=== PATIENT | female | born 1950 | race Caucasian/White ===

== ENCOUNTER → 2017-12-17 11:16 | Outpatient (CLI) | payer MEDICARE, OTHER, SELFPAY ==
[2017-12-17 09:47] VITALS: BP 131/85; BMI 32.9
[2017-12-17 11:46] LABS: Allen Test POS; Base Excess 3 mmol/L (-2 to +2); Bicarbonate 27.3 mmol/L (22-26); Blood Gas Specimen Type ART; O2 Delivery Device Nasal Can; PO2 70 mmHG (75-100); SITE R Radial; SO2 94 % (95-99); Time Given 1125; Total Carbon Dioxide 29 mmol/L; pH 7.42 (7.35-7.45)
== END ==
PROVIDERS: Family Provider Family Medicine; PCP Family Medicine; Visit Provider Nurse Practitioner Acute Care
DX: R06.09 Other forms of dyspnea (principal)
CPT/HCPCS: 36600; 82803

== ENCOUNTER → 2018-01-01 12:13 | Outpatient (CLI) | payer MEDICARE, OTHER, SELFPAY ==
[2017-12-17 09:47] VITALS: BP 131/85; BMI 32.9
[2018-01-01 14:04] VITALS: PULSE 100; PULSE 102; PULSE 104; PULSE 118; PULSE 82; O2SAT 77; O2SAT 78; O2SAT 84; O2SAT 87; O2SAT 89; O2SAT 92
--- NOTE | 2018-01-01 14:12 | CPS ---
PT ARRIVED ON 4L PULSE DOSE O2. PLACED HER ON ROOM AIR. SATS WERE 77%. PLACED THE PT BACK ON 4L PULSE DOSE SATS INCREASED TO 93%. AT ONE MINUTE SATS DECREASED TO 84% INCREASED TO 5L PULSE DOSE. AT 2 MINUTES SATS WERE 78% PLACED THE PATIENT ON 4L CONTINUOS OXYGEN SATS INCREASE TO 90%. AT 3 MINUTES HAD TO INCREASE PATIENT TO 6L DUE TO SATS 87%. PT WAS INSTRUCTED TO USE CONTINOUS OXYGEN AT HOME WITH EXCERTION. I SPOKE WITH HARRY AND THIS IS WHAT SHE INSTRUCTED PATIENT TO DO.
--- NOTE | 2018-01-01 16:24 | WT_ITS ---
PSN 6 Minute Walk Test - 6 Minute Walk Test 6 Minute Walk Test: 6 Minute Walk Test PSN:6-Minute Walk Test Start: 01/01/18 14: 04 Freq: Status: Active Protocol: [id number] Document 01/01/18 14:04 EW (Rec: 01/01/18 14:19 EW [id number]) 6 Minute Walk Test Date Performed 01/01/18 Time Performed 12:30 Height 5 ft 9 in Weight: 73.936 kg Weight in Pounds 163.[address]: Harry Flores Assistive device used: None Pre-test Oxygen Delivery Method Room Air Pulse Ox (%) 77 Pulse Rate (60-100 beats/min) 104 H Dyspnea Janna Scale (0-10) 2 Exertion Janna Scale (6-20) 8 1st minute Oxygen Flow Rate (L/min) 5 Oxygen Delivery Method Nasal Cannula Pulse Ox (%) 84 Pulse Rate (60-100 beats/min) 102 H 2nd minute Oxygen Flow Rate (L/min) 4 Oxygen Delivery Method Nasal Cannula Pulse Ox (%) 78 Pulse Rate (60-100 beats/min) 118 H 3rd minute Oxygen Flow Rate (L/min) 6 Oxygen Delivery Method Nasal Cannula Pulse Ox (%) 87 Pulse Rate (60-100 beats/min) 104 H 4th minute Oxygen Flow Rate (L/min) 6 Oxygen Delivery Method Nasal Cannula Pulse Ox (%) 89 Pulse Rate (60-100 beats/min) 102 H 5th minute Oxygen Flow Rate (L/min) 6 Oxygen Delivery Method Nasal Cannula Pulse Ox (%) 92 Pulse Rate (60-100 beats/min) 100 6th minute Oxygen Flow Rate (L/min) 6 Oxygen Delivery Method Nasal Cannula Pulse Ox (%) 89 Pulse Rate (60-100 beats/min) 104 H Post-test Oxygen Delivery Method Nasal Cannula Pulse Ox (%) 92 Pulse Rate (60-100 beats/min) 82 Dyspnea Janna Scale (0-10) 3 Exertion Janna Scale (6-20) 12 Full Laps Walked 10 Partial Lap, Number of Tiles Walked 0 Total Distance Walked (ft) 590 01/01/18 14:12 Cardiopulmonary Services by Miladis Quiles PT ARRIVED ON 4L PULSE DOSE O2. PLACED HER ON ROOM AIR. SATS WERE 77%. PLACED THE PT BACK ON 4L PULSE DOSE SATS INCREASED TO 93%. AT ONE MINUTE SATS DECREASED TO 84% INCREASED TO 5L PULSE DOSE. AT 2 MINUTES SATS WERE 78% PLACED THE PATIENT ON 4L CONTINUOS OXYGEN SATS INCREASE TO 90%. AT 3 MINUTES HAD TO INCREASE PATIENT TO 6L DUE TO SATS 87%. PT WAS INSTRUCTED TO USE CONTINOUS OXYGEN AT HOME WITH EXCERTION. I SPOKE WITH HARRY AND THIS IS WHAT SHE INSTRUCTED PATIENT TO DO. Initialized on 01/01/18 14:12 - END OF NOTE - Interpretation Interpretation: Patient was noted to be 77% on room air, but improved to 93% at 4 L pulse dose. Patient was titrated as high as 6 L pulse dose, but continued to have desaturation. Reflexive tachycardia was noted. A total of 590 feet or traveled over the course of 6 minutes. These findings are consistent with a respiratory limitation exercise tolerance - Recommendations Recommendations: Patient requires at least 4 L pulse dose at rest and has marginal saturations with 6 L pulse dose with exertion. Patient may require continuous flow oxygen to maintain safe exercise oximetries.
== END ==
PROVIDERS: Family Provider Internal Medicine; PCP Internal Medicine; Visit Provider Nurse Practitioner Acute Care
DX: R06.09 Other forms of dyspnea (principal)
CPT/HCPCS: 94618

== ENCOUNTER → 2018-01-03 14:05 | Outpatient (CLI) | payer MEDICARE, OTHER, SELFPAY ==
[2017-12-17 09:47] VITALS: BP 131/85; BMI 32.9
--- NOTE | 2018-01-03 14:06 | ECHOD_ITS ---
Version 2 Reason For Study: Dyspnea/SOB Procedure This was a 2D Doppler, Color Flow transthoracic echocardiogram. Exam performed in department. Left Ventricle Normal size and thickness. The estimated ejection fraction is 65 %. Stage 1 diastolic dysfunction. No regional wall motion abnormalities noted. Right Ventricle Normal size and thickness. Normal systolic function. Atria Normal left atrium. Normal right atrium. Normal atrial septum. Mitral Valve The mitral valve is structurally normal. No prolapse or stenosis seen. Trivial mitral valve insufficiency. Tricuspid Valve Normal tricuspid valve. Trivial tricuspid valve insufficiency. Right ventricular systolic pressure estimated to be 18 mmHg. Aortic Valve Normal aortic valve. Trisinus/trileaflet aortic valve. Pulmonic Valve Normal pulmonic valve. Trivial eccentric pulmonic valve insufficiency. Great Vessels Normal aortic root. Normal arch. Normal inferior vena cava. Inferior vena cava collapse with sniff. Pericardium/Pleural No pericardial effusion. MMode/2D Measurements & Calculations LVIDd: 3.6 cm IVSd: 0.92 cm Ao root diam: 2.7 cm LVIDs: 2.1 cm LVPWd: 0.93 cm LA dimension: 3.5 cm RVDd: 3.4 cm FS: 41.8 % LAV(MOD-bp): 19.9 ml LA A4 area: 10.4 cm2 RA A4 area: 10.4 cm2 LAV(MOD-bp) Indexed: 11.8 ml/m2 LAV(MOD-sp2): 21.3 ml LAV(MOD-sp4): 17.7 ml Doppler Measurements & Calculations MV E max shay: 49.7 cm/sec Lat Peak E' Shay: 4.6 cm/sec Med Peak E' Shay: 3.0 cm/sec MV A max shay: 76.1 cm/sec E/E' lat: 10.7 E/E' med: 16.7 MV E/A: 0.65 Ao V2 max: 151.7 cm/sec LV V1 max: 107.0 cm/sec PA V2 max: 72.1 cm/sec Ao max P.2 mmHg LV V1 max P.6 mmHg Ao V2 mean: 109.3 cm/sec Ao mean P.2 mmHg Ao V2 VTI: 26.1 cm TR max shay: 180.4 cm/sec TR max P.0 mmHg Interpretation Summary The estimated ejection fraction is 65 %. Stage 1 diastolic dysfunction. Trivial mitral valve insufficiency. Trivial tricuspid valve insufficiency. Right ventricular systolic pressure estimated to be 18 mmHg. Compared to echo report dated 05/16/2016, no appreciable changes noted. The estimated ejection fraction is 65 %. Ordering Physician: Autumn Flores Referring Physician: Rosalia Harrell Performed By: Luz Marina Mancia RDCS, RVT
== END ==
PROVIDERS: Family Provider Internal Medicine; PCP Internal Medicine; Visit Provider Nurse Practitioner Acute Care
DX: R06.09 Other forms of dyspnea (principal)
CPT/HCPCS: 93306

== ENCOUNTER → 2018-01-07 13:14 | Outpatient (CLI) | payer MEDICARE, OTHER, SELFPAY ==
[2017-12-17 09:47] VITALS: BP 131/85; BMI 32.9
--- NOTE | 2018-01-08 11:18 | PFT ---
INTRODUCTION: The patient is a 67-year-old female currently under the care of Autumn Flores NP that presents for pulmonary function testing secondary to a diagnosis of dyspnea on exertion. Respiratory therapy reports good patient effort. Bronchodilators were used during testing. INTERPRETATION: Forced expiration spirometry demonstrates no evidence of a large airways obstructive ventilatory defect. There was no significant response to aerosolized bronchodilators, based upon strict ATS criteria. Spirograms are of fair quality and plateau normally. Body plethysmography was performed and reveals a decreased TLC to 3.83 L, 69% of predicted, indicative of a moderate restrictive ventilatory defect. The remainder of the lung volumes are symmetrically reduced. Diffusing capacity by single breath CO is severely reduced at 19% of predicted. When compared to previous pulmonary function studies dated May 2017, there has been a 40% decrease in the patient's DLCO. IMPRESSION: These pulmonary function studies demonstrate the presence of a moderate restrictive ventilatory defect with a disproportionate severe reduction in diffusing capacity. There has been significant worsening in DLCO since PFTs were last completed in May 2017. Clinical correlation is recommended.
== END ==
PROVIDERS: Family Provider Internal Medicine; PCP Internal Medicine; Visit Provider Nurse Practitioner Acute Care
DX: R06.09 Other forms of dyspnea (principal)
CPT/HCPCS: 94060; 94726; 94729

== ENCOUNTER → 2018-02-20 07:45 | Outpatient (CLI) | payer MEDICARE, OTHER, SELFPAY ==
[2018-02-20 08:48] LABS: Hematocrit 49.1 % (37-47); Hemoglobin 16.5 g/dl (12.0-15.0); Mean Corp Hgb Conc 33.6 g/gl (32-36); Mean Corpuscular Hgb 31.4 pg (27.0-32.0); Mean Corpuscular Volume 93.3 fL (81-99); Mean Platelet Vol. 10.9 fl (6.2-12.0); Platelet Count 217 K/mm3 (150-450); RBC Distribution Width CV 13.6 % (11.6-14.6); RBC Distribution Width SD 45.1 fl (35.1-43.9); Red Blood Count 5.26 M/mm3 (4.2-5.4); White Blood Count 6.6 K/mm3 (4.4-11.0)
[2018-02-20 08:49] LABS: Scan Indicated on CBC? Y/N NO
[2018-02-20 09:10] LABS: ALB/GLOB Ratio 0.9 RATIO (0.9-2.4); AST(SGOT) 32 U/L (15-37); Alanine Aminotransfer ALT/SGPT 33 U/L (13-56); Albumin, Serum 3.6 g/dL (3.2-5.0); Alkaline Phosphatase 91 U/L (45-117); Anion Gap 9 (5-15); BUN 21 mg/dL (7-18); BUN/Creat Ratio 24.3 RATIO (10-20); Calcium,Total 9.1 mg/dL (8.5-10.1); Chloride 100 mmol/L (98-107); Cholesterol 185 mg/dL (200); Creatinine, Serum 0.86 mg/dL (0.55-1.02); EST Glomerular Filtration Rate 70 mL/min (>60); Est Glom Filt Rate - Afr Amer 84 mL/min (>60); Globulin 4.2 g/dL (2.2-4.2); Glucose 122 mg/dL (74-106); High Density Lipoprotein 55 mg/dL; Potassium 3.7 mmol/L (3.5-5.1); Protein, Total 7.8 g/dL (6.4-8.2); Sodium Level 139 mmol/L (136-145); Triglycerides 101 mg/dL; Very Low Density Lipoprotein 20 mg/dL (5-40)
[2018-02-20 09:20] LABS: BNP,B-Type NATRIURETIC PEPTIDE 191.1 pg/mL (0-100)
== END ==
PROVIDERS: Nurse Practitioner Acute Care; Family Provider Internal Medicine; PCP Internal Medicine; Visit Provider Internal Medicine
DX: E78.5 Hyperlipidemia, unspecified (principal); R06.09 Other forms of dyspnea; R06.00 Dyspnea, unspecified
CPT/HCPCS: 36415; 80053; 80061; 83880; 85027

== ENCOUNTER → 2018-03-11 09:55 | Outpatient (CLI) | payer MEDICARE, OTHER, SELFPAY ==
[2018-03-11 10:51] LABS: Rheumatoid Factor < 10.0 IU/mL (<15)
[2018-03-13 03:07] LABS: Cytoplasmic Ab (C-ANCA) <1:20 titer (Neg:<1:20)
[2018-03-13 12:24] LABS: CCP IgG Antibodies 4 units (0-19); Perinuclear Ab (P-ANCA) <1:20 titer (Neg:<1:20)
== END ==
PROVIDERS: Family Provider Internal Medicine; PCP Internal Medicine; Visit Provider Nurse Practitioner Acute Care
DX: R06.00 Dyspnea, unspecified (principal)
CPT/HCPCS: 36415; 86200; 86256; 86431

== ENCOUNTER → 2018-03-21 15:34 | Outpatient (CLI) | payer MEDICARE, OTHER, SELFPAY ==
--- NOTE | 2018-03-21 15:36 | CT_ITS ---
STUDY: CT CHEST WITHOUT CONTRAST REASON FOR EXAM: Female, 67 years old. DYSPNEA, WORSENING, BRONCHIECTASIS, PREV SMOKER-QUIT SMOKING 20 YRS AGO, HX-HTN RADIATION DOSAGE (If Supplied By Facility): CTDIvol = ( 21.09 ) mGy, DLP = ( 650.35 ) mGycm TECHNIQUE: Transaxial imaging was performed without the administration of intravenous contrast material. Individualized dose optimization techniques were used for this CT. COMPARISON: March 13, 2016 FINDINGS: There is worsened diffuse bronchiectasis. There are worsened honeycombing of the lower lobes. There is no demonstrated pleural abnormality. There is stable borderline cardiomegaly. Again seen are multiple mediastinal and hilar lymph nodes, some enlarged. Some lymph nodes have enlarged. Normal unenhanced pulmonary arteries. There is atherosclerotic calcification of the aortic arch with tortuosity and elongation of the aortic arch and descending thoracic aorta. There are multi-level degenerative changes of the thoracic spine. Again seen is intra and extrahepatic biliary dilatation. CT/Chest without Contrast IMPRESSION: There is interval worsening of chronic lung disease. There is slightly worsened mediastinal and hilar lymphadenopathy. Electronically Signed: Guera Shaw MD at 8:52 EDT , Service support ,
== END ==
PROVIDERS: Family Provider Internal Medicine; PCP Internal Medicine; Visit Provider Nurse Practitioner Acute Care
DX: R06.00 Dyspnea, unspecified (principal)
CPT/HCPCS: 71250

== ENCOUNTER 2018-04-01 15:30 | Outpatient (RCR) | payer MEDICARE, OTHER, SELFPAY ==
--- NOTE | 2018-04-08 07:09 | HP.PTEVAL_ITS ---
Patient's Visit Information ISMA GUTIERREZ is a 67 year old F referred to Physical Therapy by Rosalia Harrell MD with a diagnosis of L shoulder tendonitis. Date of Evaluation: 03/28/18 Physical Therapist: Francisco Gomez - Visit Plan Frequency: 2x /Week Duration: 4 Weeks Plan: Continue range of motion, strength to tolerance. Modalities for pain control. - Subjective Subjective: Pt. is here today for her initial evaluation with diagnosis of L shoulder tendonitis. Pt. reports having pain for approximately 6-8 weeks. Pt. reports no mechanism of injury, but a gradual onset. Pt. reports haivng pain in L shoulder in deltoid, sub acromial space region. She reports increased pain with lifting, reaching, ADLs, driving. Decreased pain: rest, OTC pain meds. Pt. denies N/T in either UE. PMH- idiopathic pulmonary fibrosis, Bronchiectasis, Chronic hypoxemic respiratory failure. Pt. reports she is planning on getting on the list for a lung transplant. She is on constant 6 L of O2 at rest. Pt. reports rapid fatigue with all mobility especially with walking. SHe reports no radiatiing pain, but is isolated into L shoulder. Pt. has not trialed exercises or any modalities to reduce symptoms. Pt. is hopeful to reduce L shoulder pain in order to get back to all ADLs and IADLs without limitations. - Pain Left shoulder Pain Intensity (Out of 10): 4 Pain Intensity Range: 1, 6 - Objective POSTURE: Pt. has FH posture, rounded shoulders, increased thoracic kyphosis, over wt. PALPATION: Pt. has increased pain with palpation to sub acromial space anterior to posterior, infrapinatus pain, and medial boarder of scapular pain. NEUROLOGICAL: Pt. has normal sensation to light and sharp touch. Pt. has 2+ biceps and triceps DTR bilaterally. No signs of upper limb tension. ROM: Pt has full cervical ROM without increase in symptoms. R shoulder- full without issues. AROM- L shoulder- flexion 120deg increase NW, abd 118deg increase NW, functional ER C2 abherrant motion increase NW, functional IR ASIS abherrant motion increase NW. PROM- full with increase NW at end ranges. MMT- R shoulder - 4+/5 throughout no pain. L shoulder- flexion 4/5 increase NW, abd 4/5 increase NW, ER 4/5 increase NW, IR 4+/5 NE. - Special Tests L Shoulder Drop Sign - IS Test: Negative L Shoulder Empty Can - SS: Positive L Shoulder Belly Press - SupScap: Negative L Shoulder Neer - Impingement: Positive L Shoulder Patel Warner - Impingement: Positive L Shoulder Biceps Load Test - Labrum: Negative L Shoulder Speeds Test - Labrum/Biceps: Positive - Goals Goal 1:: Pt. to be I with HEP. Goal Time Frame: 4-6 Weeks Goal 2:: Pt. to have full PROM of L shoulder without increase in symptoms. Goal Time Frame: 4-6 Weeks Goal 3:: Pt. to have full AROM, symmetrical to R side without symptoms. Goal Time Frame: 4-6 Weeks Goal 4:: Pt. to have increased LUE strength by 1/2 grade of all effected musculature allowing for increased stability with all ADLs and IADLs. Goal Time Frame: 4-6 Weeks Goal 5:: Pt. to sleep without increase in L shoulder pain allowing for increased quality of life. Goal Time Frame: 4-6 Weeks Goal 6:: Pt. complete all ADLs and IADLs without increas in L shoulder symptoms. Goal Time Frame: 4-6 Weeks - Rehabilitation Potential Physical Therapy Diagnosis: Pt. has signs and symptoms consistent with L shoulder tendonitis/impingement syndrome. Pt. had flexed posture, rounded shoulders and increased pain at she elevates her arm over head heights. She has some slight weakness, but no other signs of tears. Pt. would benefit from PT to increase ROM and strength along with improved posture to reduce stress at subacromial space with all ADLs. Rehabilitation Potential: Good - Anticipated Interventions Patient/Client Instruction: Educate patient on: Condition, Plan of Care, Risk Factors, Benefits of Fitness Program For the Purpose of:: To foster healthy habits, To improve decision making, To facilitate caregiver knowledge, To improve self management, To prevent re-injury , To improve ability to perform tasks related to life management, To improve tolerance to ADL's Therapeutic Exercise to Include: Strength training, Power training, Endurance training, Postural training, Flexibilty training, Passive ROM, Active ROM, Scapular Strength/Stabilization For the Purpose of:: To decrease pain, To decrease swelling/inflammation, To increase ROM, To improve ability to perform ADL's, To improve performance and independence with ADL's, To improve health of tissue, To decrease soft tissue restriction, To increase flexibility/ROM Manual Therapy Techniques to Include: Trigger point massage, Mobilization, Passive ROM, Functional dry needling, Soft tissue mobilization For the Purpose of:: To decrease pain, To decrease swelling/inflammation, To increase ROM, To improve nutrient delivery to tissue, To improve muscle performance and motor function, To improve ability to perform ADL's, To increase tolerance to activity/condition/position, To improve health of tissue, To increase flexibility/ROM IF ES: Yes Cryotherapy (ice pack, ice massage): Yes Ultrasound (thermal/non thermal): Yes For the Purpose of:: To decrease pain, To decrease swelling/inflammation, To increase ROM, To improve nutrient delivery to tissue, To increase oxygenation perfusion, To improve muscle performance and motor function Thank you for the opportunity to evaluate your patient. For Medicare and Medicare HMO plans, please review the plan of care and approve it. It will need to be FAXED BACK to us at [phone] for Medicare purposes. Please let me know if there are questions or concerns regarding this plan of care. Physician Signature: Date:
--- NOTE | 2018-09-05 08:39 | HP.PTDCNRP_ITS ---
HP - Discharge Summary (1) - Patient Information ISMA GUTIERREZ was seen in my office for initial evaluation on 03/28/18. The following Plan of Care was established for this patient: Initial Frequency: 2x /Week Initial Duration: 4 Weeks - Anticipated Interventions Patient/Client Instruction: Educate patient on: Condition, Plan of Care, Risk Factors, Benefits of Fitness Program For the Purpose of:: To foster healthy habits, To improve decision making, To facilitate caregiver knowledge, To improve self management, To prevent re- injury, To improve ability to perform tasks related to life management, To improve tolerance to ADL's Therapeutic Exercise to Include: Strength training, Power training, Endurance training, Postural training, Flexibilty training, Passive ROM, Active ROM, Scapu lar Strength/Stabilization For the Purpose of:: To decrease pain, To decrease swelling/inflammation, To increase ROM, To improve ability to perform ADL's, To improve performance and independence with ADL's, To improve health of tissue, To decrease soft tissue restriction, To increase flexibility/ROM Manual Therapy Techniques to Include: Trigger point massage, Mobilization, Passive ROM, Functional dry needling, Soft tissue mobilization For the Purpose of:: To decrease pain, To decrease swelling/inflammation, To increase ROM, To improve nutrient delivery to tissue, To improve muscle performance and motor function, To improve ability to perform ADL's, To increase tolerance to activity/condition/position, To improve health of tissue, To increase flexibility/ROM IF ES: Yes Cryotherapy (ice pack, ice massage): Yes Ultrasound (thermal/non thermal): Yes For the Purpose of:: To decrease pain, To decrease swelling/inflammation, To increase ROM, To improve nutrient delivery to tissue, To increase oxygenation perfusion, To improve muscle performance and motor function This patient was last seen in our office 04/01/18. Pertinent comments regarding their Physical therapy will appear below: Pt. was seen for PT for her shoulder pain. Pt. has having greater difficulty with her breathing and decided to put PT on hold. Pt. has not been back to PT since. Pt. will be DC from PT at this point in time. At this point I will be discontinuing this patient from physical therapy. I would be happy to see this patient again in the future if found appropriate by the physician. Thank you! Francisco Gomez
== END 2018-04-01 19:00 | disposition home or self-care (01) ==
LOC: PT 15:30
PROVIDERS: Family Provider Internal Medicine; PCP Internal Medicine; Visit Provider Internal Medicine
DX: M77.9 Enthesopathy, unspecified (principal)
CPT/HCPCS: 97014; 97140; 97162; G0283; G8978; G8979

== ENCOUNTER 2018-05-16 06:37 | Inpatient (IN) | payer MEDICARE, OTHER, SELFPAY ==
[2018-05-16] VITALS (28 sets, daily range): BP systolic 79–118; BP diastolic 33–77; PULSE 80–141; RESP 16–29; TEMP 36.3–40.1; O2SAT 80–96; BMI 30.8; BMI 30.9
--- NOTE | 2018-05-16 06:58 | CPS ---
Placed patient on 10L HFNC. Pt states her normal spO2 is 88%
--- NOTE | 2018-05-16 07:00 | ED.RN ---
PT ARRIVES C/O SOB. NORMALLY ON 6-7L AT HOME, BUT ARRIVED W/NO O2. MILD RESPIRATORY DISTRESS NOTED. ALSO C/O DIARRHEA FOR 2-3 DAYS.
--- NOTE | 2018-05-16 07:04 | RAD_ITS ---
STUDY: X-RAY CHEST REASON FOR EXAM: Female, 67 years old. TECHNIQUE: 1 view COMPARISON: None. FINDINGS: There is mild cardiomegaly with abutment of increased interstitial markings in both lung bases. There is no failure and there are no pleural effusions Normal visualized thoracic spine. Normal visualized ribs, clavicles, and shoulders. There is no demonstrated abnormality of the visualized soft tissue structures of the upper abdomen. RAD/Chest 1 View (Portable) IMPRESSION: Moderate cardiomegaly with increased interstitial markings in both lung bases. No pleural effusions Electronically Signed: Kj Booth, at 7:42 EDT Tel , Service support ,
--- NOTE | 2018-05-16 07:04 | EKG12_ITS ---
Test Reason : SOB Blood Pressure : / mmHG Vent. Rate : 129 BPM Atrial Rate : 129 BPM P-R Int : 128 ms QRS Dur : 084 ms QT Int : 288 ms P-R-T Axes : 045 123 005 degrees QTc Int : 421 ms Sinus tachycardia Biatrial enlargement ST & T wave abnormality, consider inferior ischemia Abnormal ECG Confirmed by CARLINE CARABALLO, TORSTEN ([id number]), supervising editor trailer BRIONNA OWENS ([id number]) on 05/19/2018 3:00:54 PM Referred By: MINDA Confirmed By:TORSTEN CROWLEY MD
[2018-05-16] MEDS: Acetaminophen 500 MG Tablet 1000 MG PO (07:13)
[2018-05-16 07:14] LABS: Absolute Lymphocyte Count 0.75 X10^3/ul (0.83-4.51); Absolute Neutrophil Count 14.9 X10^3/uL (2.0-7.7); Basophil# 0.03 X10^3/uL; Basophil% 0.2 % (0-1); Eosinophil# 0.04 X10^3/uL; Eosinophils% 0.2 % (0-5); Hematocrit 46.1 % (37-47); Hemoglobin 15.7 g/dl (12.0-15.0); Lymphocyte # 0.75 X10^3/ul (4.0); Lymphocyte % 4.6 % (19-41); Mean Corp Hgb Conc 34.1 g/gl (32-36); Mean Corpuscular Hgb 31.2 pg (27.0-32.0); Mean Corpuscular Volume 91.5 fL (81-99); Mean Platelet Vol. 11.6 fl (6.2-12.0); Monocyte# 0.44 X10^3/uL; Monocyte% 2.7 % (0-10); Neutrophil # 14.87 X10^3/uL (2.7-7.7); Neutrophil % 91.9 % (47-70); POSITIVE COUNT NO; POSITIVE DIFFERENTIAL NO; POSITIVE MORPHOLOGY NO; Platelet Count 154 K/mm3 (150-450); RBC Distribution Width CV 14.2 % (11.6-14.6); RBC Distribution Width SD 46.6 fl (35.1-43.9); Red Blood Count 5.04 M/mm3 (4.2-5.4); White Blood Count 16.2 K/mm3 (4.4-11.0)
[2018-05-16] MEDS: Ondansetron 4 MG/2 ML Vial IV (07:14)
[2018-05-16] MEDS: 0.9% Normal Saline 1,000 ML 150 ML IV ×2 (07:14→12:39)
--- NOTE | 2018-05-16 07:19 | ED.VISSUMM ---
- ER Visit Summary Date of Service: 05/16/18 Chief Complaint: Diarrhea History of Present Illness: The patient is a 67 F with a history of pulmonary fibrosis. Patient complains of diarrhea and nausea for the past 3 days. She has not noted a fever at home but has had chills. She denies abdominal pain. Patient states that her breathing is at baseline. She does state that she has had to turn her oxygen up a little bit higher the last couple days. Physical Examination: Blood pressure is 115/71, temperature 100.5, heart rate 137, respiratory rate 24, pulse ox 89% on 10 L nasal cannula. Head neck examination is significant for dry mucous membranes. Heart is tachycardic. Lung sounds slightly diminished throughout. Abdomen is soft nontender. Hypoactive bowel sounds are noted throughout. Patient is speaking full sentences. Test Results: EKG is sinus tach at 129. There are T inversions in lead III that are new compared to 2016. Portable chest x-ray shows moderate cardiomegaly. There is increased interstitial markings of both lung bases. No pleural effusion. CBC was a white count of 16.2 with 92% neutrophils. Hemoglobin is concentrated at 15.7. Chemistry studies are significant for sodium of 130, chloride 90, BUN 24. Her glucose is 151. Urinalysis was obtained from a straight cath. This does reveal positive nitrites with 0-5 white cells and 5-10 epithelial cells. 1+ bacteria is noted. Emergency Department Course and Treatment: Patient was given Tylenol, Zofran, and IV fluids. Repeat temperature is 97.3. Heart rate is improved to 109. Blood pressure has dropped to the 80s and 90s systolic. I did find a prior echocardiogram from December of this year which revealed an EF of 65%. IV fluid bolus has been ordered. Patient did have blood cultures drawn and urine culture was obtained. When her blood pressure decreased lactate was drawn and is normal at 1.9. Patient will be given a dose of Rocephin. Treatment Plan: [] Disposition: Admit Impression: 1. Diarrhea 2. Hyponatremia 3. Dehydration 4. Nitrite positive urine 5. Hypo-tension This note was generated with [employer]ation software. It may contain incorrect words, spelling, and punctuation that were not noted in review of the chart prior to signing ED Disposition - Plan for ED Patient: Chief Complaint: Shortness of Breath Referrals: Rosalia Harrell MD [Primary Care Provider] -
[2018-05-16 07:22] LABS: Anion Gap 13 (5-15); BUN 24 mg/dL (7-18); BUN/Creat Ratio 25.9 RATIO (10-20); Calcium,Total 9.1 mg/dL (8.5-10.1); Chloride 90 mmol/L (98-107); Creatinine, Serum 0.93 mg/dL (0.55-1.02); EST Glomerular Filtration Rate 64 mL/min (>60); Est Glom Filt Rate - Afr Amer 77 mL/min (>60); Estimated Creatinine Clearance 64.22 ml/min; Glucose 151 mg/dL (74-106); Potassium 3.6 mmol/L (3.5-5.1); Sodium Level 130 mmol/L (136-145)
[2018-05-16 08:41] LABS: Color, Urine Amber (Yellow); Glucose, Dipstick Normal (Normal); Ketone-Dipstick 5 mg/dl (Negative); Leukocyte Esterase-Dipstick 100 /ul (Negative); Nitrite-Dipstick Positive (Negative); Occult Blood-Urine 10 /ul (Negative); Protein-Dipstick 100 mg/dl (Negative); Urine Clarity Sl. Cloudy (Clear); Urine Urobilinogen 4 mg/dl (Normal)
[2018-05-16 08:51] LABS: Urine Bilirubin Dipstick 3 mg/dL (Negative)
[2018-05-16 08:53] LABS: Mucous, Urine 2+ /hpf (<or=2+); Red Blood Cells-Urine 0-5 SEEN /hpf (0-5); Squamous Epithelial Cells - UA 5-10 SEEN /hpf (5-10); White Blood Cells 0-5 SEEN /hpf (0-5)
[2018-05-16 08:54] LABS: Lactic Acid 1.9 mmol/L (0.4-2.0)
[2018-05-16 08:54] LABS: Bacteria 1+ /hpf (None Seen)
[2018-05-16] MEDS: 0.9% Normal Saline 1,000 ML 999 ML IV ×2 (08:59→09:51)
--- NOTE | 2018-05-16 09:12 | NURSING ---
ICU ACUTE ON CHRONIC RESP FAILURE, UTI LAURA
[2018-05-16] MEDS: Ceftriaxone 1 GM/50 ML BAG IV ×2 (09:16→22:29)
--- NOTE | 2018-05-16 09:20 | PCM.HP.STD ---
Problem List (1) Diarrhea Status: Acute Qualifiers: Diarrhea type: presumed infectious Qualified Code(s): R19.7 - Diarrhea, unspecified History of Present Illness Date of Admission: 05/16/18 Chief Complaint: diarrhea The patient is a 67 year old F with past medical history of interstitial lung disease on home oxygen 4-6L, and hypertension. She was admitted by the ED on 05/16/2018 with complaint of diarrhea for 3 days prior to presentation. Patient states 3 days ago, that a barbecue of steak as well as some salad and corn. She subsequently developed diarrhea going about 5-6 times daily. Diarrhea was nonbloody and mucoid. She denied any assisted vomiting but admitted to some chills and no fever. She also noticed frequency of urination though she did not denied any dysuria or offensive smelling urine. She did not notice any shortness of breath and has a baseline cough which is productive of clear sputum he states is due to her interstitial lung disease. Patient is being worked up for possible lung transplant at [facility] and had been started on prednisone for that. She follows up with Dr. Neville. Admission in the ED, blood pressure was noted to be 115 4/71, temperature was 100.5.,HR was 137,RR of 24 and pule ox of 89% on 10L of oxygen. Labs done in the ED showed white cell count of 16.2 and 92% neutrophils and hemoglobin at 15.7 which was thought to be due to hemoconcentration. History showed sodium of 130, chloride of 19 BUN of 24 as well as glucose of 151 and a UA from straight cath showed positive nitrites with 0-5 white cells and 1+ bacteria as well as 5-10 epithelial cells. She was given IV fluids in the ED but blood pressure subsequently dropped to 80s and 90s systolic. Blood cultures were drawn and urine culture obtained lactic acid was 1.9. She was started on IV Rocephin has been admitted to be managed for acute on chronic respiratory failure, diarrhea and hypertension as well as UTI. [] Past Medical History Past Medical History (Chronic Problems): Chronic Problems (Last Updated 05/16/18 @ 10:38 by Carolina Thompson) PORRAS (dyspnea on exertion) (Chronic) Chronic hypoxemic respiratory failure (Chronic) 4 L pulse dose at rest, 6 L pulse dose on ambulation Bronchiectasis (Chronic) Stage 2 moderate COPD by GOLD classification (Chronic) FEV1 56% of predicted Restrictive lung disease (Chronic) GERD (gastroesophageal reflux disease) (Chronic) Arthritis (Chronic) Hypoxia (Chronic) Chronic bronchitis (Chronic) Hyperlipemia (Chronic) Hypertension (Chronic) Medical History: Medical History (Last Updated 05/16/18 @ 10:38 by Carolina Thompson) Cataracts, bilateral (Acute) H26.9 GERD (gastroesophageal reflux disease) (Chronic) K21.9 History of pneumonia (Acute) Z87.01 Arthritis (Chronic) M19.90 Hypoxia (Chronic) R09.02 Chronic bronchitis (Chronic) J42 Hyperlipemia (Chronic) E78.5 Hypertension (Chronic) I10 Pulmonary fibrosis J84.10 Allergies No Known Allergies Allergy (Verified 05/16/18 06:42) Home Medications: Ambulatory Orders Medication Instructions Recorded hydrochlorothiazide 25 mg tablet 25 mg PO DAILY #90 tab 11/18/17 losartan 50 mg tablet 50 mg PO DAILY #90 tab 11/18/17 acetaminophen 300 mg-codeine 30 mg 1 tab PO Q8H PRN PRN tab 11/29/17 tablet budesonide 0.25 mg/2 mL suspension 0.25 mg INHALATION Q12H 11/29/17 for nebulization formoterol fumarate 20 mcg/2 mL 2 ml INHALATION Q12H 11/29/17 solution for nebulization mucus clearing device See Dose Instructions .ROUTE 11/29/17 .MEDSUPPLY #1 ea cholecalciferol (vitamin D3) 2,000 2,000 unit PO DAILY cap 12/17/17 unit capsule morphine 20 mg/5 mL (4 mg/mL) oral 2.5 mg PO Q4H PRN PRN ml 04/02/18 solution Dapsone 50 mg PO BID 05/16/18 Prednisone 40 mg PO DAILY 05/16/18 Simvastatin [Zocor] PO DAILY 05/16/18 Surgical History: Surgical History (Last Reviewed 05/16/18 @ 10:39 by Carolina Thompson) History of appendectomy Z98.890, Z90.49 History of cholecystectomy Z98.890, Z90.49 Surgical History: appendectomy Psychiatric History: No pertinent psych hx Lives: Alone Smoking Status: Former smoker - quit 17 years ago Alcohol: Rare Drugs: None Review of Systems Constitutional: Reports: Chills, Malaise, Weakness. Denies: Anorexia, Fever Eyes: Denies: Blurred vision HEENT: Denies: Head Aches, Sinus Congestion, Sinus Drainage Cardiovascular: Denies: Chest Pain, Light Headedness, Orthopnea, Palpitations, Paroxysmal Noc. Dyspnea, Syncope Respiratory: Reports: Sputum production - clear sputum. Denies: Cough, Shortness of breath at rest Gastrointestinal: Reports: Diarrhea. Denies: Abdominal Pain, Dyspepsia, Nausea, Melena, Vomiting Genitourinary: Reports: Frequency. Denies: Dysuria, Incontinence, Urgency Musculoskeletal: Denies: Joint Pain, Joint Tenderness Skin: Denies: Rash, Wounds Neurological: Denies: Numbness, Tingling, Focal weakness Psychiatric: Denies: Anxiety, Depression, Homicidal Ideations, Suicidal Ideations Hematologic/ Lymphatic: Denies: Easy Bruising, Easy Bleeding VTE Information - Inpt Only VTE Present on Admission: No VTE Mechan Device Prophylaxis: SCD's VTE Pharm Prophylaxis ordered?: Yes Patient Problems: Active and Suspected Problems (Last Updated 05/16/18 @ 10:38 by Carolina Thompson) Diarrhea (Acute) - Physical Exam General: Alert, Oriented x3, Cooperative, No apparent distress HEENT: Atraumatic, PERRLA, EOMI, Normocephalic Oral: Moist Mucosa Neck: Supple, No JVD Lungs: - - has coarse crackles in mid and lower lung beasley bilaterally Cardiovascular: Regular Rhythm, Normal S1, Normal S2, Tachycardic Abdomen: Bowel Sounds Present, Soft, Non Tender, Non-Distended, No Hepato-splenomegaly Extremities: No clubbing, No cyanosis, No edema, Capillary Refill Less than 3 Seconds Skin: No rashes, No breakdown Musculoskeletal: No Tenderness to Palpation of Joints or Extremities Lymphatic: No Cervical, Supraclavicular, or Inguinal Adenopathy Neurological: Cranial nerves II-XII grossly intact Psych/Mental Status: Normal Affect, Appropriate, Alert and oriented to time, place, person, mood and affect Vital Signs Temp Pulse Resp BP Pulse Ox 97.3 F L 89 19 H 79/44 L 93 05/16/18 08:09 05/16/18 09:00 05/16/18 09:00 05/16/18 09:00 05/16/18 09:00 Oxygen Flow Rate (L/min) 10 Oxygen Delivery Method Nasal Cannula Weight: 152 lb 12.485 oz Body Mass Index (BMI) 30.8 Laboratory Tests Past 24 Hrs 05/16/18 05/16/18 05/16/18 06:30 06:30 08:10 WBC 16.2 H RBC 5.04 Hgb 15.7 H Hct 46.1 MCV 91.5 MCH 31.2 MCHC 34.1 RDW 14.2 RDW Differential 46.6 H Plt Count 154 MPV 11.6 Immature Gran % (Auto) 0.400 Neut % (Auto) 91.9 H Lymph % (Auto) 4.6 L [place] % (Auto) 2.7 Eos % (Auto) 0.2 Baso % (Auto) 0.2 Absolute Neuts (auto) 14.9 H Absolute Lymphs (auto) 0.75 L Total Counted Not Reportable Sodium 130 L Potassium 3.6 Chloride 90 L Carbon Dioxide 27.0 Anion Gap 13 BUN 24 H Creatinine 0.93 Estim Creat Clear Calc 64.22 Est GFR (MDRD) Af Amer 77 Est GFR (MDRD) Non-Af 64 BUN/Creatinine Ratio 25.9 H Glucose 151 H Lactic Acid 1.9 Calcium 9.1 Urine Color Urine Clarity Urine pH Ur Specific [place] Urine Protein Urine Glucose (UA) Urine Ketones Urine Occult Blood Urine Nitrite Urine Bilirubin Urine Urobilinogen Ur Leukocyte Esterase Urine RBC Urine WBC Ur Squamous Epith Cells Urine Bacteria Urine Mucus 05/16/18 08:36 WBC RBC Hgb Hct MCV MCH MCHC RDW RDW Differential Plt Count MPV Immature Gran % (Auto) Neut % (Auto) Lymph % (Auto) [place] % (Auto) Eos % (Auto) Baso % (Auto) Absolute Neuts (auto) Absolute Lymphs (auto) Total Counted Sodium Potassium Chloride Carbon Dioxide Anion Gap BUN Creatinine Estim Creat Clear Calc Est GFR (MDRD) Af Amer Est GFR (MDRD) Non-Af BUN/Creatinine Ratio Glucose Lactic Acid Calcium Urine Color [place] Urine Clarity Sl. Cloudy Urine pH 5.0 Ur Specific [place] 1.020 Urine Protein 100 H Urine Glucose (UA) Normal Urine Ketones 5 H Urine Occult Blood 10 H Urine Nitrite Positive H Urine Bilirubin 3 H Urine Urobilinogen 4 H Ur Leukocyte Esterase 100 H Urine RBC 0-5 SEEN Urine WBC 0-5 SEEN Ur Squamous Epith Cells 5-10 SEEN Urine Bacteria 1+ Urine Mucus 2+ Diagnostic Data Chest X-Ray 05/16/18 07:04 IMPRESSION: Moderate cardiomegaly with increased interstitial markings in both lung bases. No pleural effusions Electronically Signed: Kj Booth, at 7:42 EDT Tel , Service support , Assessment/Plan All Active Problems (Last Updated 05/16/18 @ 10:38 by Carolina Thompson) Dyspnea (Acute) Tendinitis (Acute) Shortness of breath (Acute) IPF (idiopathic pulmonary fibrosis) (Acute) Diarrhea (Acute) Cataracts, bilateral (Acute) History of pneumonia (Acute) 67-year-old female with a history of interstitial lung disease on home oxygen and hypertension presenting with a 3 day history of diarrhea and dehydration. 1. Sepsis due to UTI SIRS criteria 3/4 with [place] of 128 on admission, T of 100.5 and wbc-16.7, with focus of admission being UTI complains of frequency of urine. UA showed leucocyte esterase of 3, and 1+ bacteria, with 0-5wbcs started on IV ceftriaxone in the ED; will continue will admit to ICU under telemetry will give IVF NS @ 150cc/hr 2. Gastroenteritis 5-6 episodes of diarrhea daily. Started on Saturday after she ate some grilled steak and corn and salad Was hypotensive on admission even with IV fluids. Will give IV fluid bolus of 1 L every 2 hours and continue with 1 50 cc/h. Due to the stability of infectious diarrhea, with assisted chills will send for stool examination and culture. Screen for C. difficile 3. UTI: as mentioned above. On IV ceftriaxone; will continue 4. Acute on chronic respiratory failure due to sepsis usually on 4L at home, which increases to 7L at home with exertion now on 10L in the ED, with saturation between 90-92% will continue oxygen by nasal canula, with aim for saturatioin >92% consult pulmonary 5. Hypotension: due to dehydration from diarrhea. BP meds on hold. on IVF. 6. Interstitial lung disease: diagnosed 2016. On oxygen as mentioned above. Being worked up for lung transplant at . On steroids. continue oxygen to maintain saturation >92% 7. Hypovolemic hypotonic hyponatremia Na is 130; likely due to dehydration will monitor with IVF administration 8. HTN: BP meds on hold o/a of hypotension 9. DVT prophylaxis: heparin 10. Code status: full code Code Visit Inpatient E&M: 44812 Init Hosp L3
--- NOTE | 2018-05-16 09:30 | HP.PCM_ITS ---
Problem List (1) Diarrhea Status: Acute Qualifiers: Diarrhea type: presumed infectious Qualified Code(s): R19.7 - Diarrhea, unspecified History of Present Illness Date of Admission: 05/16/18 Chief Complaint: diarrhea The patient is a 67 year old F with past medical history of interstitial lung disease on home oxygen 4-6L, and hypertension. She was admitted by the ED on 05/16/2018 with complaint of diarrhea for 3 days prior to presentation. Patient states 3 days ago, that a barbecue of steak as well as some salad and corn. She subsequently developed diarrhea going about 5-6 times daily. Diarrhea was nonbloody and mucoid. She denied any assisted vomiting but admitted to some chills and no fever. She also noticed frequency of urination though she did not denied any dysuria or offensive smelling urine. She did not notice any shortness of breath and has a baseline cough which is productive of clear sputum he states is due to her interstitial lung disease. Patient is being worked up for possible lung transplant at [facility] and had been started on prednisone for that. She follows up with Dr. Neville. Admission in the ED, blood pressure was noted to be 115 4/71, temperature was 100.5.,HR was 137,RR of 24 and pule ox of 89% on 10L of oxygen. Labs done in the ED showed white cell count of 16.2 and 92% neutrophils and hemoglobin at 15.7 which was thought to be due to hemoconcentration. History showed sodium of 130, chloride of 19 BUN of 24 as well as glucose of 151 and a UA from straight cath showed positive nitrites with 0-5 white cells and 1+ bacteria as well as 5-10 epithelial cells. She was given IV fluids in the ED but blood pressure subsequently dropped to 80s and 90s systolic. Blood cultures were drawn and urine culture obtained lactic acid was 1.9. She was started on IV Rocephin has been admitted to be managed for acute on chronic respiratory failure, diarrhea and hypertension as well as UTI. [] Past Medical History Past Medical History (Chronic Problems): Chronic Problems (Last Updated 05/16/18 @ 10:38 by Carolina Thompson) PORRAS (dyspnea on exertion) (Chronic) Chronic hypoxemic respiratory failure (Chronic) 4 L pulse dose at rest, 6 L pulse dose on ambulation Bronchiectasis (Chronic) Stage 2 moderate COPD by GOLD classification (Chronic) FEV1 56% of predicted Restrictive lung disease (Chronic) GERD (gastroesophageal reflux disease) (Chronic) Arthritis (Chronic) Hypoxia (Chronic) Chronic bronchitis (Chronic) Hyperlipemia (Chronic) Hypertension (Chronic) Medical History: Medical History (Last Updated 05/16/18 @ 10:38 by Carolina Thompson) Cataracts, bilateral (Acute) H26.9 GERD (gastroesophageal reflux disease) (Chronic) K21.9 History of pneumonia (Acute) Z87.01 Arthritis (Chronic) M19.90 Hypoxia (Chronic) R09.02 Chronic bronchitis (Chronic) J42 Hyperlipemia (Chronic) E78.5 Hypertension (Chronic) I10 Pulmonary fibrosis J84.10 Allergies No Known Allergies Allergy (Verified 05/16/18 06:42) Home Medications: Ambulatory Orders Medication Instructions Recorded hydrochlorothiazide 25 mg tablet 25 mg PO DAILY #90 tab 11/18/17 losartan 50 mg tablet 50 mg PO DAILY #90 tab 11/18/17 acetaminophen 300 mg-codeine 30 mg 1 tab PO Q8H PRN PRN tab 11/29/17 tablet budesonide 0.25 mg/2 mL suspension 0.25 mg INHALATION Q12H 11/29/17 for nebulization formoterol fumarate 20 mcg/2 mL 2 ml INHALATION Q12H 11/29/17 solution for nebulization mucus clearing device See Dose Instructions .ROUTE 11/29/17 .MEDSUPPLY #1 ea cholecalciferol (vitamin D3) 2,000 2,000 unit PO DAILY cap 12/17/17 unit capsule morphine 20 mg/5 mL (4 mg/mL) oral 2.5 mg PO Q4H PRN PRN ml 04/02/18 solution Dapsone 50 mg PO BID 05/16/18 Prednisone 40 mg PO DAILY 05/16/18 Simvastatin [Zocor] PO DAILY 05/16/18 Surgical History: Surgical History (Last Reviewed 05/16/18 @ 10:39 by Carolina Thompson) History of appendectomy Z98.890, Z90.49 History of cholecystectomy Z98.890, Z90.49 Surgical History: appendectomy Psychiatric History: No pertinent psych hx Lives: Alone Smoking Status: Former smoker - quit 17 years ago Alcohol: Rare Drugs: None Review of Systems Constitutional: Reports: Chills, Malaise, Weakness. Denies: Anorexia, Fever Eyes: Denies: Blurred vision HEENT: Denies: Head Aches, Sinus Congestion, Sinus Drainage Cardiovascular: Denies: Chest Pain, Light Headedness, Orthopnea, Palpitations, Paroxysmal Noc. Dyspnea, Syncope Respiratory: Reports: Sputum production - clear sputum. Denies: Cough, Shortness of breath at rest Gastrointestinal: Reports: Diarrhea. Denies: Abdominal Pain, Dyspepsia, Nausea , Melena, Vomiting Genitourinary: Reports: Frequency. Denies: Dysuria, Incontinence, Urgency Musculoskeletal: Denies: Joint Pain, Joint Tenderness Skin: Denies: Rash, Wounds Neurological: Denies: Numbness, Tingling, Focal weakness Psychiatric: Denies: Anxiety, Depression, Homicidal Ideations, Suicidal Ideations Hematologic/ Lymphatic: Denies: Easy Bruising, Easy Bleeding VTE Information - Inpt Only VTE Present on Admission: No VTE Mechan Device Prophylaxis: SCD's VTE Pharm Prophylaxis ordered?: Yes Patient Problems: Active and Suspected Problems (Last Updated 05/16/18 @ 10:38 by Carolina Thompson) Diarrhea (Acute) - Physical Exam General: Alert, Oriented x3, Cooperative, No apparent distress HEENT: Atraumatic, PERRLA, EOMI, Normocephalic Oral: Moist Mucosa Neck: Supple, No JVD Lungs: - - has coarse crackles in mid and lower lung beasley bilaterally Cardiovascular: Regular Rhythm, Normal S1, Normal S2, Tachycardic Abdomen: Bowel Sounds Present, Soft, Non Tender, Non-Distended, No Hepato- splenomegaly Extremities: No clubbing, No cyanosis, No edema, Capillary Refill Less than 3 Seconds Skin: No rashes, No breakdown Musculoskeletal: No Tenderness to Palpation of Joints or Extremities Lymphatic: No Cervical, Supraclavicular, or Inguinal Adenopathy Neurological: Cranial nerves II-XII grossly intact Psych/Mental Status: Normal Affect, Appropriate, Alert and oriented to time, place, person, mood and affect Vital Signs Temp Pulse Resp BP Pulse Ox 97.3 F L 89 19 H 79/44 L 93 05/16/18 08:09 05/16/18 09:00 05/16/18 09:00 05/16/18 09:00 05/16/18 09:00 Oxygen Flow Rate (L/min) 10 Oxygen Delivery Method Nasal Cannula Weight: 152 lb 12.485 oz Body Mass Index (BMI) 30.8 Laboratory Tests Past 24 Hrs 05/16/18 05/16/18 05/16/18 06:30 06:30 08:10 WBC 16.2 H RBC 5.04 Hgb 15.7 H Hct 46.1 MCV 91.5 MCH 31.2 MCHC 34.1 RDW 14.2 RDW Differential 46.6 H Plt Count 154 MPV 11.6 Immature Gran % (Auto) 0.400 Neut % (Auto) 91.9 H Lymph % (Auto) 4.6 L [place] % (Auto) 2.7 Eos % (Auto) 0.2 Baso % (Auto) 0.2 Absolute Neuts (auto) 14.9 H Absolute Lymphs (auto) 0.75 L Total Counted Not Reportable Sodium 130 L Potassium 3.6 Chloride 90 L Carbon Dioxide 27.0 Anion Gap 13 BUN 24 H Creatinine 0.93 Estim Creat Clear Calc 64.22 Est GFR (MDRD) Af Amer 77 Est GFR (MDRD) Non-Af 64 BUN/Creatinine Ratio 25.9 H Glucose 151 H Lactic Acid 1.9 Calcium 9.1 Urine Color Urine Clarity Urine pH Ur Specific [place] Urine Protein Urine Glucose (UA) Urine Ketones Urine Occult Blood Urine Nitrite Urine Bilirubin Urine Urobilinogen Ur Leukocyte Esterase Urine RBC Urine WBC Ur Squamous Epith Cells Urine Bacteria Urine Mucus 05/16/18 08:36 WBC RBC Hgb Hct MCV MCH MCHC RDW RDW Differential Plt Count MPV Immature Gran % (Auto) Neut % (Auto) Lymph % (Auto) [place] % (Auto) Eos % (Auto) Baso % (Auto) Absolute Neuts (auto) Absolute Lymphs (auto) Total Counted Sodium Potassium Chloride Carbon Dioxide Anion Gap BUN Creatinine Estim Creat Clear Calc Est GFR (MDRD) Af Amer Est GFR (MDRD) Non-Af BUN/Creatinine Ratio Glucose Lactic Acid Calcium Urine Color [place] Urine Clarity Sl. Cloudy Urine pH 5.0 Ur Specific [place] 1.020 Urine Protein 100 H Urine Glucose (UA) Normal Urine Ketones 5 H Urine Occult Blood 10 H Urine Nitrite Positive H Urine Bilirubin 3 H Urine Urobilinogen 4 H Ur Leukocyte Esterase 100 H Urine RBC 0-5 SEEN Urine WBC 0-5 SEEN Ur Squamous Epith Cells 5-10 SEEN Urine Bacteria 1+ Urine Mucus 2+ Diagnostic Data Chest X-Ray 05/16/18 07:04 IMPRESSION: Moderate cardiomegaly with increased interstitial markings in both lung bases. No pleural effusions Electronically Signed: Kj Booth, at 7:42 EDT Tel , Service support , Assessment/Plan All Active Problems (Last Updated 05/16/18 @ 10:38 by Carolina Thompson) Dyspnea (Acute) Tendinitis (Acute) Shortness of breath (Acute) IPF (idiopathic pulmonary fibrosis) (Acute) Diarrhea (Acute) Cataracts, bilateral (Acute) History of pneumonia (Acute) 67-year-old female with a history of interstitial lung disease on home oxygen and hypertension presenting with a 3 day history of diarrhea and dehydration. 1. Sepsis due to UTI * SIRS criteria 3/4 with [place] of 128 on admission, T of 100.5 and wbc-16.7, with focus of admission being UTI * complains of frequency of urine. * UA showed leucocyte esterase of 3, and 1+ bacteria, with 0-5wbcs * started on IV ceftriaxone in the ED; will continue * will admit to ICU under telemetry * will give IVF NS @ 150cc/hr * 2. Gastroenteritis * 5-6 episodes of diarrhea daily. Started on Saturday after she ate some grilled steak and corn and salad * Was hypotensive on admission even with IV fluids. Will give IV fluid bolus of 1 L every 2 hours and continue with 1 50 cc/h. * Due to the stability of infectious diarrhea, with assisted chills will send for stool examination and culture. * Screen for C. difficile * 3. UTI: as mentioned above. On IV ceftriaxone; will continue 4. Acute on chronic respiratory failure due to sepsis * usually on 4L at home, which increases to 7L at home with exertion * now on 10L in the ED, with saturation between 90-92% * will continue oxygen by nasal canula, with aim for saturatioin >92% * consult pulmonary * 5. Hypotension: due to dehydration from diarrhea. BP meds on hold. on IVF. 6. Interstitial lung disease: * diagnosed 2016. On oxygen as mentioned above. Being worked up for lung transplant at . On steroids. * continue oxygen to maintain saturation >92% 7. Hypovolemic hypotonic hyponatremia * Na is 130; likely due to dehydration * will monitor with IVF administration 8. HTN: BP meds on hold o/a of hypotension 9. DVT prophylaxis: heparin 10. Code status: full code Code Visit Inpatient E&M: 04670 Init Hosp L3
--- NOTE | 2018-05-16 11:03 | PCM.CON.CC ---
Reason for Consult Date of Consultation: 05/16/18 Reason for Consultation: Acute on chronic respiratory failure History of Present Illness: The patient is a 67-year-old female, with a history as outlined below, who presented to the emergency department on May 16 with complaints of nausea and diarrhea. The patient reports that she began to develop diarrhea approximately 3-4 days ago. Although she attempted to take an adequate fluid, she subsequently became dehydrated. The patient currently follows with Dr. Doroteo Neville on an outpatient basis due to a history of presumptive idiopathic pulmonary fibrosis, stage II COPD, baseline bronchiectasis and chronic hypoxemic respiratory failure. She was last seen in the pulmonary medicine office at the end of March 2018, at which time, the patient was referred to the [facility] for IPF evaluation. He did note that he would consider initiating pirfenidone if there was a considerable delay in her evaluation. She was previously prescribed a trilogy noninvasive ventilator in her home environment, was noncompliant with its use due to claustrophobia. She is currently active with palliative care. Patient's last 6 minute walk test revealed the need for 4 L/min of pulse of supplemental oxygen at rest and 6 L/min with exertion. The patient states that she did in fact go to the [facility] for evaluation recently and was reportedly told that she was a good candidate for lung transplantation. They have begun the workup accordingly. The patient was also placed on prednisone. On presentation to the emergency department, the patient was noted to be febrile, tachycardic and mildly hypotensive. She was able to maintain appropriate oxygen saturations on 10 L of high flow supplemental oxygen. Laboratory evaluation revealed elevated white blood cell count to 16,000. Chemistry profile revealed a sodium of 130 and a chloride of 90. Creatinine was within normal limits. Serum lactate was normal at 1.9. Plain film chest x-ray revealed cardiomegaly and chronic interstitial lung changes. The patient received supplemental IV fluid hydration and was subsequently transferred to the medical intensive care unit. Past Medical History Past Medical History (Chronic Problems): Chronic Problems (Last Updated 05/16/18 @ 10:38 by Carolina Thompson) PORRAS (dyspnea on exertion) (Chronic) Chronic hypoxemic respiratory failure (Chronic) 4 L pulse dose at rest, 6 L pulse dose on ambulation Bronchiectasis (Chronic) Stage 2 moderate COPD by GOLD classification (Chronic) FEV1 56% of predicted Restrictive lung disease (Chronic) GERD (gastroesophageal reflux disease) (Chronic) Arthritis (Chronic) Hypoxia (Chronic) Chronic bronchitis (Chronic) Hyperlipemia (Chronic) Hypertension (Chronic) Medical History: Medical History (Last Updated 05/16/18 @ 10:38 by Carolina Thompson) Cataracts, bilateral (Acute) H26.9 GERD (gastroesophageal reflux disease) (Chronic) K21.9 History of pneumonia (Acute) Z87.01 Arthritis (Chronic) M19.90 Hypoxia (Chronic) R09.02 Chronic bronchitis (Chronic) J42 Hyperlipemia (Chronic) E78.5 Hypertension (Chronic) I10 Pulmonary fibrosis J84.10 Allergies No Known Allergies Allergy (Verified 05/16/18 06:42) Home Medications: Ambulatory Orders Medication Instructions Recorded hydrochlorothiazide 25 mg tablet 25 mg PO DAILY #90 tab 11/18/17 losartan 50 mg tablet 50 mg PO DAILY #90 tab 11/18/17 acetaminophen 300 mg-codeine 30 mg 1 tab PO Q8H PRN PRN tab 11/29/17 tablet budesonide 0.25 mg/2 mL suspension 0.25 mg INHALATION Q12H 11/29/17 for nebulization formoterol fumarate 20 mcg/2 mL 2 ml INHALATION Q12H 11/29/17 solution for nebulization mucus clearing device See Dose Instructions .ROUTE 11/29/17 .MEDSUPPLY #1 ea cholecalciferol (vitamin D3) 2,000 2,000 unit PO DAILY cap 12/17/17 unit capsule morphine 20 mg/5 mL (4 mg/mL) oral 2.5 mg PO Q4H PRN PRN ml 04/02/18 solution Dapsone 50 mg PO BID 05/16/18 Prednisone 40 mg PO DAILY 05/16/18 Simvastatin [Zocor] PO DAILY 05/16/18 Surgical History: Surgical History (Last Reviewed 05/16/18 @ 10:39 by Carolina Thompson) History of appendectomy Z98.890, Z90.49 History of cholecystectomy Z98.890, Z90.49 Surgical History: appendectomy Psychiatric History: No pertinent psych hx Lives: Alone Smoking Status: Former smoker Tobacco Use: Non-smoker Alcohol: Rare Drugs: None Review of Systems Constitutional: Reports: Weakness, Fatigue Eyes: Denies: Blurred vision, Double vision HEENT: Denies: Head Aches, Sinus Congestion, Sinus Drainage Cardiovascular: Denies: Chest Pain, Palpitations Respiratory: Reports: Shortness of Breath, Shortness of breath upon exertion Gastrointestinal: Reports: Diarrhea, Nausea. Denies: Abdominal Pain Genitourinary: Denies: Dysuria Musculoskeletal: Denies: Joint Pain, Joint Tenderness Skin: Denies: Rash, Wounds Neurological: Denies: Numbness, Tingling, Focal weakness Psychiatric: Denies: Anxiety, Depression, Homicidal Ideations, Suicidal Ideations Hematologic/ Lymphatic: Denies: Easy Bruising, Easy Bleeding Patient Problems: Active and Suspected Problems (Last Updated 05/16/18 @ 10:38 by Carolina Thompson) Diarrhea (Acute) Objective: The patient's most recent lab work, culture data and imaging studies have all been personally reviewed. Blood and urine cultures are currently pending. Surface echocardiogram from December 2017 revealed stage I diastolic dysfunction with an ejection fraction of 65%. CT chest without contrast dated March 2018 revealed progressive worsening of the patient's baseline interstitial lung disease with mediastinal and hilar lymphadenopathy noted. - Physical Exam General: Alert, Cooperative, No apparent distress HEENT: Atraumatic, PERRLA, Normocephalic Oral: Dry Mucosa Neck: Supple, No Nodes, Trachea Midline Lungs: - - Bilateral dry crackles present. Cardiovascular: Normal S1, Normal S2, No murmurs, Tachycardic Abdomen: Bowel Sounds Present, Soft, Non Tender, Obese Extremities: No clubbing, No cyanosis, No edema Skin: No breakdown Musculoskeletal: No Tenderness to Palpation of Joints or Extremities Lymphatic: No Cervical, Supraclavicular, or Inguinal Adenopathy Neurological: Neuro grossly intact Psych/Mental Status: Normal Affect, Appropriate Vital Signs Temp Pulse Resp BP Pulse Ox 97.3 F L 82 20 H 80/33 L 93 05/16/18 08:09 05/16/18 09:51 05/16/18 09:51 05/16/18 09:51 05/16/18 09:51 Oxygen Flow Rate (L/min) 8 Oxygen Delivery Method Nasal Cannula Laboratory Tests Past 24 Hrs 05/16/18 10:40 MRSA (PCR) Pending Labs (Last 48 Hours) 05/16/18 05/16/18 05/16/18 06:30 06:30 08:10 WBC 16.2 H RBC 5.04 Hgb 15.7 H Hct 46.1 MCV 91.5 MCH 31.2 MCHC 34.1 RDW 14.2 RDW Differential 46.6 H Plt Count 154 MPV 11.6 Immature Gran % (Auto) 0.400 Neut % (Auto) 91.9 H Lymph % (Auto) 4.6 L [place] % (Auto) 2.7 Eos % (Auto) 0.2 Baso % (Auto) 0.2 Absolute Neuts (auto) 14.9 H Absolute Lymphs (auto) 0.75 L Total Counted Not Reportable Sodium 130 L Potassium 3.6 Chloride 90 L Carbon Dioxide 27.0 Anion Gap 13 BUN 24 H Creatinine 0.93 Estim Creat Clear Calc 64.22 Est GFR (MDRD) Af Amer 77 Est GFR (MDRD) Non-Af 64 BUN/Creatinine Ratio 25.9 H Glucose 151 H Lactic Acid 1.9 Calcium 9.1 Urine Color Urine Clarity Urine pH Ur Specific [place] Urine Protein Urine Glucose (UA) Urine Ketones Urine Occult Blood Urine Nitrite Urine Bilirubin Urine Urobilinogen Ur Leukocyte Esterase Urine RBC Urine WBC Ur Squamous Epith Cells Urine Bacteria Urine Mucus MRSA (PCR) 05/16/18 05/16/18 08:36 10:40 WBC RBC Hgb Hct MCV MCH MCHC RDW RDW Differential Plt Count MPV Immature Gran % (Auto) Neut % (Auto) Lymph % (Auto) [place] % (Auto) Eos % (Auto) Baso % (Auto) Absolute Neuts (auto) Absolute Lymphs (auto) Total Counted Sodium Potassium Chloride Carbon Dioxide Anion Gap BUN Creatinine Estim Creat Clear Calc Est GFR (MDRD) Af Amer Est GFR (MDRD) Non-Af BUN/Creatinine Ratio Glucose Lactic Acid Calcium Urine Color [place] Urine Clarity Sl. Cloudy Urine pH 5.0 Ur Specific [place] 1.020 Urine Protein 100 H Urine Glucose (UA) Normal Urine Ketones 5 H Urine Occult Blood 10 H Urine Nitrite Positive H Urine Bilirubin 3 H Urine Urobilinogen 4 H Ur Leukocyte Esterase 100 H Urine RBC 0-5 SEEN Urine WBC 0-5 SEEN Ur Squamous Epith Cells 5-10 SEEN Urine Bacteria 1+ Urine Mucus 2+ MRSA (PCR) Pending Clinical Impression(s) from Imaging Studies Chest X-Ray 05/16/18 07:04 IMPRESSION: Moderate cardiomegaly with increased interstitial markings in both lung bases. No pleural effusions Electronically Signed: Kj Booth, at 7:42 EDT Tel , Service support , Assessment/Plan Active and Suspected Problems (Last Updated 05/16/18 @ 10:38 by Carolina Thompson) Diarrhea (Acute) RECOMMENDATIONS: 1. Continue supplemental IV fluid hydration 2. Infectious workup as ordered. 3. Continue bronchodilators and baseline steroid dose 4. Repeat chemistry profile 5. Wean supplemental oxygen to maintain saturations at or above 88%. 6. Continue Lovenox for DVT prophylaxis IMPRESSIONS: 1. Acute on chronic hypoxemic respiratory failure The patient has underlying COPD and progressive interstitial lung disease, for which she was recently referred to the [facility] for evaluation of lung transplantation. The patient reports that she was told that she was a good candidate for transplantation and is currently amidst the workup required to undergo such or surgery. Her baseline respiratory status has been a bit tenuous in light of the recent heat and humidity. However, at this time, the patient reports that she feels as if her breathing quality is baseline. 2. Sepsis secondary to presumptive gastroenteritis versus cystitis Continue current supportive measures with IV fluid hydration and antibiotics to address potential cystitis. Recheck chemistry profile accordingly. 3. Baseline chronic obstructive pulmonary disease and progressive interstitial lung disease Continue baseline bronchodilators and chronic prednisone therapy. The patient does have a history of progressive interstitial lung disease along with COPD. Recommend continued outpatient follow-up with the [facility] for lung transplantation evaluation. 4. Mild hypovolemic hyponatremia Anticipate improvement with volume expansion. This note was generated with [employer] dictation software. It may contain incorrect words, spelling, and punctuation that were not noted in checking the note before signing. Code Visit Inpatient E&M: 35756 Init Hosp L3
--- NOTE | 2018-05-16 11:08 | CON.PCM_ITS ---
Reason for Consult Date of Consultation: 05/16/18 Reason for Consultation: Acute on chronic respiratory failure History of Present Illness: The patient is a 67-year-old female, with a history as outlined below, who presented to the emergency department on May 16 with complaints of nausea and diarrhea. The patient reports that she began to develop diarrhea approximately 3-4 days ago. Although she attempted to take an adequate fluid, she subsequently became dehydrated. The patient currently follows with Dr. Doroteo Neville on an outpatient basis due to a history of presumptive idiopathic pulmonary fibrosis, stage II COPD, baseline bronchiectasis and chronic hypoxemic respiratory failure. She was last seen in the pulmonary medicine office at the end of March 2018, at which time, the patient was referred to the [facility] for IPF evaluation. He did note that he would consider initiating pirfenidone if there was a considerable delay in her evaluation. She was previously prescribed a trilogy noninvasive ventilator in her home environment, was noncompliant with its use due to claustrophobia. She is currently active with palliative care. Patient's last 6 minute walk test revealed the need for 4 L/min of pulse of supplemental oxygen at rest and 6 L/ min with exertion. The patient states that she did in fact go to the [facility] for evaluation recently and was reportedly told that she was a good candidate for lung transplantation. They have begun the workup accordingly. The patient was also placed on prednisone. On presentation to the emergency department, the patient was noted to be febrile , tachycardic and mildly hypotensive. She was able to maintain appropriate oxygen saturations on 10 L of high flow supplemental oxygen. Laboratory evaluation revealed elevated white blood cell count to 16,000. Chemistry profile revealed a sodium of 130 and a chloride of 90. Creatinine was within normal limits. Serum lactate was normal at 1.9. Plain film chest x-ray revealed cardiomegaly and chronic interstitial lung changes. The patient received supplemental IV fluid hydration and was subsequently transferred to the medical intensive care unit. Past Medical History Past Medical History (Chronic Problems): Chronic Problems (Last Updated 05/16/18 @ 10:38 by Carolina Thompson) PORRAS (dyspnea on exertion) (Chronic) Chronic hypoxemic respiratory failure (Chronic) 4 L pulse dose at rest, 6 L pulse dose on ambulation Bronchiectasis (Chronic) Stage 2 moderate COPD by GOLD classification (Chronic) FEV1 56% of predicted Restrictive lung disease (Chronic) GERD (gastroesophageal reflux disease) (Chronic) Arthritis (Chronic) Hypoxia (Chronic) Chronic bronchitis (Chronic) Hyperlipemia (Chronic) Hypertension (Chronic) Medical History: Medical History (Last Updated 05/16/18 @ 10:38 by Carolina Thompson) Cataracts, bilateral (Acute) H26.9 GERD (gastroesophageal reflux disease) (Chronic) K21.9 History of pneumonia (Acute) Z87.01 Arthritis (Chronic) M19.90 Hypoxia (Chronic) R09.02 Chronic bronchitis (Chronic) J42 Hyperlipemia (Chronic) E78.5 Hypertension (Chronic) I10 Pulmonary fibrosis J84.10 Allergies No Known Allergies Allergy (Verified 05/16/18 06:42) Home Medications: Ambulatory Orders Medication Instructions Recorded hydrochlorothiazide 25 mg tablet 25 mg PO DAILY #90 tab 11/18/17 losartan 50 mg tablet 50 mg PO DAILY #90 tab 11/18/17 acetaminophen 300 mg-codeine 30 mg 1 tab PO Q8H PRN PRN tab 11/29/17 tablet budesonide 0.25 mg/2 mL suspension 0.25 mg INHALATION Q12H 11/29/17 for nebulization formoterol fumarate 20 mcg/2 mL 2 ml INHALATION Q12H 11/29/17 solution for nebulization mucus clearing device See Dose Instructions .ROUTE 11/29/17 .MEDSUPPLY #1 ea cholecalciferol (vitamin D3) 2,000 2,000 unit PO DAILY cap 12/17/17 unit capsule morphine 20 mg/5 mL (4 mg/mL) oral 2.5 mg PO Q4H PRN PRN ml 04/02/18 solution Dapsone 50 mg PO BID 05/16/18 Prednisone 40 mg PO DAILY 05/16/18 Simvastatin [Zocor] PO DAILY 05/16/18 Surgical History: Surgical History (Last Reviewed 05/16/18 @ 10:39 by Carolina Thompson) History of appendectomy Z98.890, Z90.49 History of cholecystectomy Z98.890, Z90.49 Surgical History: appendectomy Psychiatric History: No pertinent psych hx Lives: Alone Smoking Status: Former smoker Tobacco Use: Non-smoker Alcohol: Rare Drugs: None Review of Systems Constitutional: Reports: Weakness, Fatigue Eyes: Denies: Blurred vision, Double vision HEENT: Denies: Head Aches, Sinus Congestion, Sinus Drainage Cardiovascular: Denies: Chest Pain, Palpitations Respiratory: Reports: Shortness of Breath, Shortness of breath upon exertion Gastrointestinal: Reports: Diarrhea, Nausea. Denies: Abdominal Pain Genitourinary: Denies: Dysuria Musculoskeletal: Denies: Joint Pain, Joint Tenderness Skin: Denies: Rash, Wounds Neurological: Denies: Numbness, Tingling, Focal weakness Psychiatric: Denies: Anxiety, Depression, Homicidal Ideations, Suicidal Ideations Hematologic/ Lymphatic: Denies: Easy Bruising, Easy Bleeding Patient Problems: Active and Suspected Problems (Last Updated 05/16/18 @ 10:38 by Carolina Thompson) Diarrhea (Acute) Objective: The patient's most recent lab work, culture data and imaging studies have all been personally reviewed. Blood and urine cultures are currently pending. Surface echocardiogram from December 2017 revealed stage I diastolic dysfunction with an ejection fraction of 65%. CT chest without contrast dated March 2018 revealed progressive worsening of the patient's baseline interstitial lung disease with mediastinal and hilar lymphadenopathy noted. - Physical Exam General: Alert, Cooperative, No apparent distress HEENT: Atraumatic, PERRLA, Normocephalic Oral: Dry Mucosa Neck: Supple, No Nodes, Trachea Midline Lungs: - - Bilateral dry crackles present. Cardiovascular: Normal S1, Normal S2, No murmurs, Tachycardic Abdomen: Bowel Sounds Present, Soft, Non Tender, Obese Extremities: No clubbing, No cyanosis, No edema Skin: No breakdown Musculoskeletal: No Tenderness to Palpation of Joints or Extremities Lymphatic: No Cervical, Supraclavicular, or Inguinal Adenopathy Neurological: Neuro grossly intact Psych/Mental Status: Normal Affect, Appropriate Vital Signs Temp Pulse Resp BP Pulse Ox 97.3 F L 82 20 H 80/33 L 93 05/16/18 08:09 05/16/18 09:51 05/16/18 09:51 05/16/18 09:51 05/16/18 09:51 Oxygen Flow Rate (L/min) 8 Oxygen Delivery Method Nasal Cannula Laboratory Tests Past 24 Hrs 05/16/18 10:40 MRSA (PCR) Pending Labs (Last 48 Hours) 05/16/18 05/16/18 05/16/18 06:30 06:30 08:10 WBC 16.2 H RBC 5.04 Hgb 15.7 H Hct 46.1 MCV 91.5 MCH 31.2 MCHC 34.1 RDW 14.2 RDW Differential 46.6 H Plt Count 154 MPV 11.6 Immature Gran % (Auto) 0.400 Neut % (Auto) 91.9 H Lymph % (Auto) 4.6 L [place] % (Auto) 2.7 Eos % (Auto) 0.2 Baso % (Auto) 0.2 Absolute Neuts (auto) 14.9 H Absolute Lymphs (auto) 0.75 L Total Counted Not Reportable Sodium 130 L Potassium 3.6 Chloride 90 L Carbon Dioxide 27.0 Anion Gap 13 BUN 24 H Creatinine 0.93 Estim Creat Clear Calc 64.22 Est GFR (MDRD) Af Amer 77 Est GFR (MDRD) Non-Af 64 BUN/Creatinine Ratio 25.9 H Glucose 151 H Lactic Acid 1.9 Calcium 9.1 Urine Color Urine Clarity Urine pH Ur Specific [place] Urine Protein Urine Glucose (UA) Urine Ketones Urine Occult Blood Urine Nitrite Urine Bilirubin Urine Urobilinogen Ur Leukocyte Esterase Urine RBC Urine WBC Ur Squamous Epith Cells Urine Bacteria Urine Mucus MRSA (PCR) 05/16/18 05/16/18 08:36 10:40 WBC RBC Hgb Hct MCV MCH MCHC RDW RDW Differential Plt Count MPV Immature Gran % (Auto) Neut % (Auto) Lymph % (Auto) [place] % (Auto) Eos % (Auto) Baso % (Auto) Absolute Neuts (auto) Absolute Lymphs (auto) Total Counted Sodium Potassium Chloride Carbon Dioxide Anion Gap BUN Creatinine Estim Creat Clear Calc Est GFR (MDRD) Af Amer Est GFR (MDRD) Non-Af BUN/Creatinine Ratio Glucose Lactic Acid Calcium Urine Color [place] Urine Clarity Sl. Cloudy Urine pH 5.0 Ur Specific [place] 1.020 Urine Protein 100 H Urine Glucose (UA) Normal Urine Ketones 5 H Urine Occult Blood 10 H Urine Nitrite Positive H Urine Bilirubin 3 H Urine Urobilinogen 4 H Ur Leukocyte Esterase 100 H Urine RBC 0-5 SEEN Urine WBC 0-5 SEEN Ur Squamous Epith Cells 5-10 SEEN Urine Bacteria 1+ Urine Mucus 2+ MRSA (PCR) Pending Clinical Impression(s) from Imaging Studies Chest X-Ray 05/16/18 07:04 IMPRESSION: Moderate cardiomegaly with increased interstitial markings in both lung bases. No pleural effusions Electronically Signed: Kj Booth, at 7:42 EDT Tel , Service support , Assessment/Plan Active and Suspected Problems (Last Updated 05/16/18 @ 10:38 by Carolina Thompson) Diarrhea (Acute) RECOMMENDATIONS: 1. Continue supplemental IV fluid hydration 2. Infectious workup as ordered. 3. Continue bronchodilators and baseline steroid dose 4. Repeat chemistry profile 5. Wean supplemental oxygen to maintain saturations at or above 88%. 6. Continue Lovenox for DVT prophylaxis IMPRESSIONS: 1. Acute on chronic hypoxemic respiratory failure The patient has underlying COPD and progressive interstitial lung disease, for which she was recently referred to the [facility] for evaluation of lung transplantation. The patient reports that she was told that she was a good candidate for transplantation and is currently amidst the workup required to undergo such or surgery. Her baseline respiratory status has been a bit tenuous in light of the recent heat and humidity. However, at this time, the patient reports that she feels as if her breathing quality is baseline. 2. Sepsis secondary to presumptive gastroenteritis versus cystitis Continue current supportive measures with IV fluid hydration and antibiotics to address potential cystitis. Recheck chemistry profile accordingly. 3. Baseline chronic obstructive pulmonary disease and progressive interstitial lung disease Continue baseline bronchodilators and chronic prednisone therapy. The patient does have a history of progressive interstitial lung disease along with COPD. Recommend continued outpatient follow-up with the [facility] for lung transplantation evaluation. 4. Mild hypovolemic hyponatremia Anticipate improvement with volume expansion. This note was generated with [employer] dictation software. It may contain incorrect words, spelling, and punctuation that were not noted in checking the note before signing. Code Visit Inpatient E&M: 85695 Init Hosp L3
[2018-05-16 12:05] LABS: M R Staph aureus DNA By PCR Negative (Negative); Probe Check PASS; Specimen Processing Control PASS
[2018-05-16] MEDS: Albuterol 2.5 MG/3 ML VIAL.NEB. INHALATION ×2 (13:25→19:12)
[2018-05-16] MEDS: Budesonide Respules 0.5 MG/2 ML AMPUL.NEB. INHALATION (13:25)
[2018-05-16] MEDS: Enoxaparin 40 MG/0.4 ML Syringe SC (14:20)
--- NOTE | 2018-05-16 14:32 | CHAPLAIN ---
Type of Pastoral Visit _x__ Initial Visit ___ Follow-up Visit ___ On-call Visit ___ General Patient Visit ___ Spiritual Assessment ___ Family Conference ___ Bereavement ___ Rapid Response ___ Code Blue ___ Other (describe below) Pastoral Care Referral From _x__ Patient ___ Family ___ Nurse ___ Physician ___ Manager Truck ___ Excel Vba Developer ___ Other (describe below) Sacrament/Intervention _x__ Active listening ___ Anointing ___ Confucianist ___ Bereavement ___ Communion ___ Rocio exploration ___ ___ Life review _x__ Prayer ___ Reconciliation ___ Sacrament of Sick _x__ Supportive presence ___ Wedding ___ Other (describe below) Pastoral Comments patient states that she is facing some big possibilities and needs prayer; pt has decided to have a lung transplant and is undergoing the testing and preliminary work necessary to make this happen; pt goal is to have a few more years to enjoy life and family; pt concern is that her life is limited to being at home and unable to participate in life events;
[2018-05-16] MEDS: Acetaminophen 325 MG Tablet 650 MG PO (16:59)
[2018-05-16] MEDS: Acetaminophen/Codeine #3 Tablet 1 TABLET PO (20:15)
--- NOTE | 2018-05-16 23:28 | CPS ---
SWITCHED PT TO 10 LPM OXYGEN ON HIGH FLOW CANNULA
--- NOTE | 2018-05-16 23:38 | CPS ---
PLACED PT ON NON-REBREATHER MASK
[2018-05-17] VITALS (37 sets, daily range): BP systolic 94–133; BP diastolic 44–74; PULSE 85–117; RESP 12–33; TEMP 36.6–39.1; O2SAT 87–95
[2018-05-17] MEDS: Acetaminophen 325 MG Tablet 650 MG PO (01:00)
[2018-05-17] MEDS: Albuterol 2.5 MG/3 ML VIAL.NEB. INHALATION ×4 (01:05→19:02)
--- NOTE | 2018-05-17 01:14 | NURSING ---
At 1am patient experienced increased tachycardia and respiratory distress, dropping quickly to oxygen saturations of 50%. Patient was found holding her right lower abdomen in pain, trembling and appearing to gasp for air. Patient had pulled oxygen source from her non re-breather as well. Oxygen was reapplied and Dr pig conveyor operator and Respiratory was called STAT. Patient was put on Bi-pap and . came to room as this was happening. Gave Bi-pap orders to Resp therapy and spoke with patient about possible intubation. Patient had previously stated she did not wish to be intubated, but then told Dr she changed her mind and would allow intubation if she was in a life and situation as he described. Patient given Tylenol to decrease fever that had spiked from 99.3 to 102.3. Patient Bi-pap and resting in bed maintaining 02 saturations of 92%. Will continue to monitor and communicate with and respiratory therapy. Kayleen Gallegos RN.
[2018-05-17 01:41] LABS: Allen Test POS; Base Excess 5 mmol/L (-2 to +2); Bicarbonate 28.4 mmol/L (22-26); Blood Gas Specimen Type ART; EPAP 10; FI02 90; IPAP 18; PO2 199 mmHG (75-100); RR 12; SITE L Radial; SO2 100 % (95-99); Time Given 122; Total Carbon Dioxide 30 mmol/L; pCO2 39.2 mmHg (35-45); pH 7.47 (7.35-7.45)
[2018-05-17] MEDS: Acetaminophen/Codeine #3 Tablet 1 TABLET PO ×2 (03:11→17:03)
[2018-05-17] MEDS: 0.9% NaCl Peripheral Flush Adult/Peds IV ×2 (05:20→21:56)
[2018-05-17] MEDS: 0.9% Normal Saline 1,000 ML 150 ML IV (05:21)
[2018-05-17 05:33] LABS: Absolute Lymphocyte Count 0.61 X10^3/ul (0.83-4.51); Absolute Neutrophil Count 9.8 X10^3/uL (2.0-7.7); Basophil# 0.01 X10^3/uL; Basophil% 0.1 % (0-1); Eosinophil# 0.04 X10^3/uL; Eosinophils% 0.4 % (0-5); Hematocrit 36.6 % (37-47); Hemoglobin 11.9 g/dl (12.0-15.0); Lymphocyte # 0.61 X10^3/ul (4.0); Lymphocyte % 5.8 % (19-41); Mean Corp Hgb Conc 32.5 g/gl (32-36); Mean Corpuscular Hgb 30.7 pg (27.0-32.0); Mean Corpuscular Volume 94.3 fL (81-99); Mean Platelet Vol. 11.3 fl (6.2-12.0); Monocyte# 0.15 X10^3/uL; Monocyte% 1.4 % (0-10); Neutrophil # 9.76 X10^3/uL (2.7-7.7); Neutrophil % 92.1 % (47-70); Platelet Count 136 K/mm3 (150-450); RBC Distribution Width CV 14.7 % (11.6-14.6); Red Blood Count 3.88 M/mm3 (4.2-5.4); White Blood Count 10.6 K/mm3 (4.4-11.0)
[2018-05-17 05:39] LABS: POSITIVE COUNT NO; POSITIVE DIFFERENTIAL NO; POSITIVE MORPHOLOGY NO
[2018-05-17 05:47] LABS: Anion Gap 8 (5-15); BUN 15 mg/dL (7-18); BUN/Creat Ratio 28.4 RATIO (10-20); Calcium,Total 7.4 mg/dL (8.5-10.1); Chloride 98 mmol/L (98-107); Creatinine, Serum 0.53 mg/dL (0.55-1.02); EST Glomerular Filtration Rate 122 mL/min (>60); Est Glom Filt Rate - Afr Amer 148 mL/min (>60); Estimated Creatinine Clearance 61.96 ml/min; Glucose 96 mg/dL (74-106); Potassium 3.5 mmol/L (3.5-5.1); Sodium Level 135 mmol/L (136-145)
[2018-05-17] MEDS: Budesonide Respules 0.5 MG/2 ML AMPUL.NEB. INHALATION ×2 (06:57→19:02)
--- NOTE | 2018-05-17 07:03 | PCM.PN.INT ---
Subjective: The patient was seen and examined at the bedside this morning. Events from the last 24 hours have been reviewed. The patient is currently afebrile, hemodynamically stable and maintaining appropriate oxygen saturations on BiPAP currently. Nursing staff reports difficulty with oxygenation overnight, which led to the initiation of BiPAP. However, this morning, the patient is anxious to be removed from BiPAP so that she can eat breakfast. The patient has not had any diarrhea for approximately 24 hours. Objective: The patient's most recent lab work, culture data and imaging studies have all been personally reviewed. Blood and urine cultures are pending. General: Alert, Cooperative, No apparent distress, - - BiPAP currently in place. HEENT: Atraumatic, PERRLA, Normocephalic Oral: Dry Mucosa Neck: Supple, No Nodes, Trachea Midline Lungs: - - Crackles bilaterally Cardiovascular: Regular rate, Regular Rhythm, Normal S1, Normal S2, No murmurs Abdomen: Bowel Sounds Present, Soft, Non Tender, Obese Extremities: No clubbing, No cyanosis, No edema Skin: No breakdown Musculoskeletal: No Tenderness to Palpation of Joints or Extremities Lymphatic: No Cervical, Supraclavicular, or Inguinal Adenopathy Neurological: Neuro grossly intact Psych/Mental Status: Normal Affect, Appropriate Vital Signs Temp Pulse Resp BP Pulse Ox 99.0 F 85 20 H 103/63 93 05/17/18 06:00 05/17/18 06:00 05/17/18 06:00 05/17/18 06:00 05/17/18 06:00 Oxygen Flow Rate (L/min) 10 Oxygen Delivery Method Bi-pap Weight: 161 lb 13.109 oz Intake and Output for Last 24 Hours 05/15/18 05/16/18 05/17/18 23:59 23:59 23:59 Intake Total 857 / 857 615 / 615 Output Total 315 / 315 300 / 300 Balance 542 / 542 315 / 315 Labs (Last 48 Hours) 05/16/18 05/17/18 05/17/18 10:40 01:26 05:20 WBC 10.6 RBC 3.88 L Hgb 11.9 L Hct 36.6 L MCV 94.3 MCH 30.7 MCHC 32.5 RDW 14.7 H RDW Differential 50.0 H Plt Count 136 L MPV 11.3 Immature Gran % (Auto) 0.200 Neut % (Auto) 92.1 H Lymph % (Auto) 5.8 L [place] % (Auto) 1.4 Eos % (Auto) 0.4 Baso % (Auto) 0.1 Absolute Neuts (auto) 9.8 H Absolute Lymphs (auto) 0.61 L Total Counted Not Reportable Specimen Type ART Sample Site L Radial pH 7.47 H Bicarbonate Actual 28.4 H POC Total CO2 30 Base Excess 5 H O2 Saturation 100 H O2 % 90 ABG pCO2 39.2 ABG pO2 199 H Domenico Test POS Respiration Rate 12 O2 Delivery Device Bi / C PAP EPAP 10 IPAP 18 Blood Gas Notified Whom HOSP Blood Gas Notified Time 122 Sodium Potassium Chloride Carbon Dioxide Anion Gap BUN Creatinine Estim Creat Clear Calc Est GFR (MDRD) Af Amer Est GFR (MDRD) Non-Af BUN/Creatinine Ratio Glucose Calcium MRSA (PCR) Negative 05/17/18 05:20 WBC RBC Hgb Hct MCV MCH MCHC RDW RDW Differential Plt Count MPV Immature Gran % (Auto) Neut % (Auto) Lymph % (Auto) [place] % (Auto) Eos % (Auto) Baso % (Auto) Absolute Neuts (auto) Absolute Lymphs (auto) Total Counted Specimen Type Sample Site pH Bicarbonate Actual POC Total CO2 Base Excess O2 Saturation O2 % ABG pCO2 ABG pO2 Domenico Test Respiration Rate O2 Delivery Device EPAP IPAP Blood Gas Notified Whom Blood Gas Notified Time Sodium 135 L Potassium 3.5 Chloride 98 Carbon Dioxide 29.0 Anion Gap 8 BUN 15 Creatinine 0.53 L Estim Creat Clear Calc 61.96 Est GFR (MDRD) Af Amer 148 Est GFR (MDRD) Non-Af 122 BUN/Creatinine Ratio 28.4 H Glucose 96 Calcium 7.4 L MRSA (PCR) Clinical Impression(s) from Imaging Studies Chest X-Ray 05/16/18 07:04 IMPRESSION: Moderate cardiomegaly with increased interstitial markings in both lung bases. No pleural effusions Electronically Signed: Kj Booth, at 7:42 EDT Tel , Service support , Medical Necessity - Tobacco Use Smoking Status: Former smoker Tobacco Use: Non-smoker Assessment/Plan All Active Problems (Last Updated 05/16/18 @ 10:38 by Caorlina Thompson) Dyspnea (Acute) Tendinitis (Acute) Shortness of breath (Acute) IPF (idiopathic pulmonary fibrosis) (Acute) Diarrhea (Acute) Cataracts, bilateral (Acute) History of pneumonia (Acute) RECOMMENDATIONS: 1. Discontinue supplemental IV fluids. 2. Contact precautions can be discontinued, as the patient has not had a loose bowel movement over 24 hours. 3. Continue bronchodilators and baseline steroid dose 4. Give the patient a break from BiPAP and wean supplemental oxygen as tolerated. 5. Continue Lovenox for DVT prophylaxis IMPRESSIONS: 1. Acute on chronic hypoxemic respiratory failure The patient has underlying COPD and progressive interstitial lung disease, for which she was recently referred to the [facility] for evaluation of lung transplantation. The patient reports that she was told that she was a good candidate for transplantation and is currently amidst the workup required to undergo such or surgery. Her baseline respiratory status has been a bit tenuous in light of the recent heat and humidity. Her underlying interstitial lung disease will continue to progress. Accordingly, it is highly likely that her baseline supplemental oxygen requirement will also continue to increase. Recommend discontinuing supplemental IV fluids at this time, given the patient's history of underlying diastolic dysfunction. The patient has been prescribed a trilogy machine in her home environment, but has been noncompliant with its use due to claustrophobia. Recommend continuing empiric BiPAP therapy with naps and nightly. 2. Sepsis secondary to presumptive gastroenteritis versus cystitis Continue antibiotics while awaiting infectious workup. Supplemental IV fluids can be discontinued from my perspective. 3. Baseline chronic obstructive pulmonary disease and progressive interstitial lung disease Continue baseline bronchodilators and chronic prednisone therapy. The patient does have a history of progressive interstitial lung disease along with COPD. Recommend continued outpatient follow-up with the [facility] for lung transplantation evaluation. 4. Mild hypovolemic hyponatremia Resolving. Improved with intravascular volume expansion. This note was generated with [employer] dictation software. It may contain incorrect words, spelling, and punctuation that were not noted in checking the note before signing. Code Visit Inpatient E&M: 97807 [facility] Hosp L3
--- NOTE | 2018-05-17 09:26 | CM.UR ---
Participated in interdisciplinary rounds. Patient currently on bipap. continues to have abd pain. Currently being worked up for lung transplant at . Hx of noncompliance with bipap and trilogy use at home. Case mgmt will continue to follow during hospitalization. Angel Dickey RN, CCM.
--- NOTE | 2018-05-17 09:53 | PCM.PN.HOSP ---
Patient Problems: Active and Suspected Problems (Last Updated 05/16/18 @ 10:38 by Carolina Thompson) Diarrhea (Acute) Subjective: Patient is a 67-year-old female with a history of interstitial lung disease on home oxygen of 46 L and hypertension was admitted with a 3 day history of diarrhea and dehydration. UA was also found to be positive for UTI and she is being managed for sepsis with UTI and acute on chronic respiratory failure as well as gastroenteritis. Patient was admitted to the ICU and started on IV ceftriaxone and IV fluids. Patient seen and examined today. She desaturated overnight and had to be placed on BiPAP which she is currently on and tolerating well. Diarrhea has stopped over the last 24 hours. She denies any fever or chills, and has a baseline cough. She denies any abdominal pain or vomiting. Review of systems otherwise negative. Vitals are not overnight reviewed. Vitals/I&O's: Vital Signs Temp Pulse Resp BP Pulse Ox 99.0 F 96 26 H 106/72 94 05/17/18 06:00 05/17/18 08:03 05/17/18 08:03 05/17/18 08:03 05/17/18 08:07 Oxygen Flow Rate (L/min) 10 Oxygen Delivery Method Bi-pap Weight: 161 lb 13.109 oz Intake and Output for Last 24 Hours 05/15/18 05/16/18 05/17/18 23:59 23:59 23:59 Intake Total 857 / 857 615 / 615 Output Total 315 / 315 300 / 300 Balance 542 / 542 315 / 315 General: Alert, Oriented x3, Cooperative, - - Mild distress HEENT: Atraumatic, PERRLA, EOMI, Normocephalic Oral: Moist Mucosa Neck: Supple, No JVD, Negative Carotid Bruits Lungs: - - Has few fine crackles in both lungs in mid and lower lung beasley Cardiovascular: Regular rate, Regular Rhythm, Normal S1, Normal S2, No murmurs Abdomen: Bowel Sounds Present, Soft, Non Tender, Non-Distended Extremities: No clubbing, No cyanosis, No edema, Capillary Refill Less than 3 Seconds Skin: No rashes, No breakdown Musculoskeletal: No Tenderness to Palpation of Joints or Extremities Lymphatic: No Cervical, Supraclavicular, or Inguinal Adenopathy Neurological: Cranial nerves II-XII grossly intact, Motor Exam 5/5 strength throughout Psych/Mental Status: Normal Affect, Appropriate, Alert and oriented to time, place, person, mood and affect Comment: On BiPAP machine during review Laboratory Results 05/16/18 10:40: MRSA (PCR) Negative 05/17/18 01:26: Specimen Type ART, Sample Site L Radial, pH 7.47 H, Bicarbonate Actual 28.4 H, POC Total CO2 30, Base Excess 5 H, O2 Saturation 100 H, O2 % 90, ABG pCO2 39.2, ABG pO2 199 H, Domenico Test POS, Respiration Rate 12, O2 Delivery Device Bi / C PAP, EPAP 10, IPAP 18, Blood Gas Notified Whom SUMI CARABALLO, Blood Gas Notified Time 122 05/17/18 05:20: WBC 10.6, RBC 3.88 L, Hgb 11.9 L, Hct 36.6 L, MCV 94.3, MCH 30.7, MCHC 32.5, RDW 14.7 H, RDW Differential 50.0 H, Plt Count 136 L, MPV 11.3, Immature Gran % (Auto) 0.200, Neut % (Auto) 92.1 H, Lymph % (Auto) 5.8 L, [place] % (Auto) 1.4, Eos % (Auto) 0.4, Baso % (Auto) 0.1, Absolute Neuts (auto) 9.8 H, Absolute Lymphs (auto) 0.61 L, Total Counted Not Reportable 05/17/18 05:20: Sodium 135 L, Potassium 3.5, Chloride 98, Carbon Dioxide 29.0, Anion Gap 8, BUN 15, Creatinine 0.53 L, Estim Creat Clear Calc 61.96, Est GFR (MDRD) Af Amer 148, Est GFR (MDRD) Non-Af 122, BUN/Creatinine Ratio 28.4 H, Glucose 96, Calcium 7.4 L Current Medications Acetaminophen (Tylenol) 650 mg PO Q6H PRN PRN PRN Reason: FEVER Last Admin: 05/17/18 01:00 Dose: 650 mg Acetaminophen/Codeine Phosphate (Tylenol#3) 1 tablet PO Q6H PRN PRN PRN Reason: PAIN Last Admin: 05/17/18 03:11 Dose: 1 tablet Albuterol Sulfate (Ventolin Aerosols) 2.5 mg INHALATION Q6HWA.RT [facility] Last Admin: 05/17/18 06:57 Dose: 2.5 mg Budesonide (Pulmicort Aerosol) 0.5 mg INHALATION Q12H.RT [facility] Last Admin: 05/17/18 06:57 Dose: 0.5 mg Cholecalciferol (Vitamin D) 2,000 unit PO DAILY [facility] Last Admin: 05/16/18 14:12 Dose: Not Given Enoxaparin Sodium (Lovenox) 40 mg SC DAILY@1000 [facility] Last Admin: 05/16/18 14:20 Dose: 40 mg Sodium Chloride () 1,000 mls @ 150 mls/hr IV .Q6H40M [facility] Last Admin: 05/17/18 05:21 Dose: 150 mls/hr Ceftriaxone Sodium (Rocephin) 1 gm in 50 mls @ 100 mls/hr IV Q12 [facility] Last Admin: 05/16/18 22:29 Dose: 100 mls/hr Magnesium Hydroxide (Milk Of Magnesia) 30 ml PO DAILY PRN PRN PRN Reason: Constipation Morphine Sulfate (Roxanol (Ir Oral Solution)) 2.5 mg PO Q4H PRN PRN PRN Reason: Dyspnea Nutritional Formula (Lactose Free) (Ensure Enlive) 120 ml PO 4X/DAY [facility] Last Admin: 05/16/18 22:08 Dose: Not Given Prednisone () 40 mg PO DAILY [facility] Last Admin: 05/16/18 14:13 Dose: Not Given Sodium Chloride () 5 - 30 ml IV UD PRN PRN Reason: SALINE FLUSH Last Admin: 05/17/18 05:20 Dose: 10 ml Medical Necessity - Tobacco Use Smoking Status: Former smoker Tobacco Use: Non-smoker Assessment/Plan All Active Problems (Last Updated 05/16/18 @ 10:38 by Carolina Thompson) Dyspnea (Acute) Tendinitis (Acute) Shortness of breath (Acute) IPF (idiopathic pulmonary fibrosis) (Acute) Diarrhea (Acute) Cataracts, bilateral (Acute) History of pneumonia (Acute) 67-year-old female with a history of interstitial lung disease on home oxygen and hypertension presenting with a 3 day history of diarrhea and dehydration. 1. Sepsis due to UTI Resolving. SIRS criteria is now 2 out of 4 with tachypnea and tachycardia but these can also be attributed to the acute on chronic respiratory failure. White cell count has gone down from 16.2-10.6. Urine culture pending and blood cultures pending. On IV ceftriaxone. Will continue for now pending culture results. On IV fluids normal saline at 1 50 cc/h. We will cut down as diarrhea has stopped and patient is able to tolerate oral intake. 2. Gastroenteritis Resolved. Has not had any diarrhea over the last 24 hours. Stool for ova and parasites and cultures were ordered but has still not be done because patient has not had any diarrhea over the last 24 hours. C. difficile screen also pending. Currently on precautions for C. difficile but these will be discontinued as patient has not had any diarrhea the last 24 hours. 3. UTI: as mentioned above. On IV ceftriaxone; today is day 2. WBC has gone down. WIll continue, pending culture results 4. Acute on chronic respiratory failure due to interstitial lung disease Was in 10 L of oxygen in the ED. Baseline usually around 47 L. Patient has a history of desaturating very easily per discussion with primary care doctor yesterday. Is being worked up for lung transplant. Currently on BiPAP because she desaturated overnight. Plan is to wean off BiPAP onto oxygen by nasal cannula. Pulmonary on board. Aim is for oxygen saturation above 88% 5. Hypotension: resolved. Was due to diarrhea. Resolved with IVF. WIll continue holding BP meds as BP is only in 100s systolic. 6. Interstitial lung disease: diagnosed 2016. Now on BIPAP as mentioned above. Being worked up for transplant in [facility]. plan to wean off gradually on his oxygen via nasal cannula as tolerated and to maintain oxygen saturation above 88% P.o. prednisone. Of note, patient also on trilogy at home which has not been compliant with. 7. Hypovolemic hypotonic hyponatremia Resolving. Was likely due to dehydration. Sodium is up to 135 today from 130 on admission. Will continue monitoring. 8. HTN: BP now in 110s systolic. WIll contine holding BP meds for now. 9. DVT prophylaxis: heparin 10. GI prophylaxis: pantoprazole 11. Code status: full code Code Visit Inpatient E&M: 90463 Subs Hosp L3
--- NOTE | 2018-05-17 10:05 | PN_ITS ---
Patient Problems: Active and Suspected Problems (Last Updated 05/16/18 @ 10:38 by Carolina Thompson) Diarrhea (Acute) Subjective: Patient is a 67-year-old female with a history of interstitial lung disease on home oxygen of 46 L and hypertension was admitted with a 3 day history of diarrhea and dehydration. UA was also found to be positive for UTI and she is being managed for sepsis with UTI and acute on chronic respiratory failure as well as gastroenteritis. Patient was admitted to the ICU and started on IV ceftriaxone and IV fluids. Patient seen and examined today. She desaturated overnight and had to be placed on BiPAP which she is currently on and tolerating well. Diarrhea has stopped over the last 24 hours. She denies any fever or chills, and has a baseline cough. She denies any abdominal pain or vomiting. Review of systems otherwise negative. Vitals are not overnight reviewed. Vitals/I&O's: Vital Signs Temp Pulse Resp BP Pulse Ox 99.0 F 96 26 H 106/72 94 05/17/18 06:00 05/17/18 08:03 05/17/18 08:03 05/17/18 08:03 05/17/18 08:07 Oxygen Flow Rate (L/min) 10 Oxygen Delivery Method Bi-pap Weight: 161 lb 13.109 oz Intake and Output for Last 24 Hours 05/15/18 05/16/18 05/17/18 23:59 23:59 23:59 Intake Total 857 / 857 615 / 615 Output Total 315 / 315 300 / 300 Balance 542 / 542 315 / 315 General: Alert, Oriented x3, Cooperative, - - Mild distress HEENT: Atraumatic, PERRLA, EOMI, Normocephalic Oral: Moist Mucosa Neck: Supple, No JVD, Negative Carotid Bruits Lungs: - - Has few fine crackles in both lungs in mid and lower lung beasley Cardiovascular: Regular rate, Regular Rhythm, Normal S1, Normal S2, No murmurs Abdomen: Bowel Sounds Present, Soft, Non Tender, Non-Distended Extremities: No clubbing, No cyanosis, No edema, Capillary Refill Less than 3 Seconds Skin: No rashes, No breakdown Musculoskeletal: No Tenderness to Palpation of Joints or Extremities Lymphatic: No Cervical, Supraclavicular, or Inguinal Adenopathy Neurological: Cranial nerves II-XII grossly intact, Motor Exam 5/5 strength throughout Psych/Mental Status: Normal Affect, Appropriate, Alert and oriented to time, place, person, mood and affect Comment: On BiPAP machine during review Laboratory Results 05/16/18 10:40: MRSA (PCR) Negative 05/17/18 01:26: Specimen Type ART, Sample Site L Radial, pH 7.47 H, Bicarbonate Actual 28.4 H, POC Total CO2 30, Base Excess 5 H, O2 Saturation 100 H, O2 % 90, ABG pCO2 39.2, ABG pO2 199 H, Domenico Test POS, Respiration Rate 12, O2 Delivery Device Bi / C PAP, EPAP 10, IPAP 18, Blood Gas Notified Whom SUMI CARABALLO, Blood Gas Notified Time 122 05/17/18 05:20: WBC 10.6, RBC 3.88 L, Hgb 11.9 L, Hct 36.6 L, MCV 94.3, MCH 30.7 , MCHC 32.5, RDW 14.7 H, RDW Differential 50.0 H, Plt Count 136 L, MPV 11.3, Immature Gran % (Auto) 0.200, Neut % (Auto) 92.1 H, Lymph % (Auto) 5.8 L, [place] % (Auto) 1.4, Eos % (Auto) 0.4, Baso % (Auto) 0.1, Absolute Neuts (auto) 9.8 H, Absolute Lymphs (auto) 0.61 L, Total Counted Not Reportable 05/17/18 05:20: Sodium 135 L, Potassium 3.5, Chloride 98, Carbon Dioxide 29.0, Anion Gap 8, BUN 15, Creatinine 0.53 L, Estim Creat Clear Calc 61.96, Est GFR ( MDRD) Af Amer 148, Est GFR (MDRD) Non-Af 122, BUN/Creatinine Ratio 28.4 H, Glucose 96, Calcium 7.4 L Current Medications Acetaminophen (Tylenol) 650 mg PO Q6H PRN PRN PRN Reason: FEVER Last Admin: 05/17/18 01:00 Dose: 650 mg Acetaminophen/Codeine Phosphate (Tylenol#3) 1 tablet PO Q6H PRN PRN PRN Reason: PAIN Last Admin: 05/17/18 03:11 Dose: 1 tablet Albuterol Sulfate (Ventolin Aerosols) 2.5 mg INHALATION Q6HWA.RT [facility] Last Admin: 05/17/18 06:57 Dose: 2.5 mg Budesonide (Pulmicort Aerosol) 0.5 mg INHALATION Q12H.RT [facility] Last Admin: 05/17/18 06:57 Dose: 0.5 mg Cholecalciferol (Vitamin D) 2,000 unit PO DAILY [facility] Last Admin: 05/16/18 14:12 Dose: Not Given Enoxaparin Sodium (Lovenox) 40 mg SC DAILY@1000 [facility] Last Admin: 05/16/18 14:20 Dose: 40 mg Sodium Chloride () 1,000 mls @ 150 mls/hr IV .Q6H40M [facility] Last Admin: 05/17/18 05:21 Dose: 150 mls/hr Ceftriaxone Sodium (Rocephin) 1 gm in 50 mls @ 100 mls/hr IV Q12 [facility] Last Admin: 05/16/18 22:29 Dose: 100 mls/hr Magnesium Hydroxide (Milk Of Magnesia) 30 ml PO DAILY PRN PRN PRN Reason: Constipation Morphine Sulfate (Roxanol (Ir Oral Solution)) 2.5 mg PO Q4H PRN PRN PRN Reason: Dyspnea Nutritional Formula (Lactose Free) (Ensure Enlive) 120 ml PO 4X/DAY [facility] Last Admin: 05/16/18 22:08 Dose: Not Given Prednisone () 40 mg PO DAILY [facility] Last Admin: 05/16/18 14:13 Dose: Not Given Sodium Chloride () 5 - 30 ml IV UD PRN PRN Reason: SALINE FLUSH Last Admin: 05/17/18 05:20 Dose: 10 ml Medical Necessity - Tobacco Use Smoking Status: Former smoker Tobacco Use: Non-smoker Assessment/Plan All Active Problems (Last Updated 05/16/18 @ 10:38 by Carolina Thompson) Dyspnea (Acute) Tendinitis (Acute) Shortness of breath (Acute) IPF (idiopathic pulmonary fibrosis) (Acute) Diarrhea (Acute) Cataracts, bilateral (Acute) History of pneumonia (Acute) 67-year-old female with a history of interstitial lung disease on home oxygen and hypertension presenting with a 3 day history of diarrhea and dehydration. 1. Sepsis due to UTI * Resolving. SIRS criteria is now 2 out of 4 with tachypnea and tachycardia but these can also be attributed to the acute on chronic respiratory failure. * White cell count has gone down from 16.2-10.6. * Urine culture pending and blood cultures pending. * On IV ceftriaxone. Will continue for now pending culture results. * On IV fluids normal saline at 1 50 cc/h. We will cut down as diarrhea has stopped and patient is able to tolerate oral intake. * * * 2. Gastroenteritis * Resolved. Has not had any diarrhea over the last 24 hours. * Stool for ova and parasites and cultures were ordered but has still not be done because patient has not had any diarrhea over the last 24 hours. C. difficile screen also pending. * Currently on precautions for C. difficile but these will be discontinued as patient has not had any diarrhea the last 24 hours. * * 3. UTI: as mentioned above. On IV ceftriaxone; today is day 2. WBC has gone down. WIll continue, pending culture results 4. Acute on chronic respiratory failure due to interstitial lung disease * Was in 10 L of oxygen in the ED. Baseline usually around 47 L. * Patient has a history of desaturating very easily per discussion with primary care doctor yesterday. Is being worked up for lung transplant. * Currently on BiPAP because she desaturated overnight. * Plan is to wean off BiPAP onto oxygen by nasal cannula. * Pulmonary on board. Aim is for oxygen saturation above 88% * * 5. Hypotension: resolved. Was due to diarrhea. Resolved with IVF. WIll continue holding BP meds as BP is only in 100s systolic. 6. Interstitial lung disease: * diagnosed 2016. Now on BIPAP as mentioned above. Being worked up for transplant in [facility]. * plan to wean off gradually on his oxygen via nasal cannula as tolerated and to maintain oxygen saturation above 88% * P.o. prednisone. * Of note, patient also on trilogy at home which has not been compliant with. * 7. Hypovolemic hypotonic hyponatremia * Resolving. Was likely due to dehydration. Sodium is up to 135 today from 130 on admission. * Will continue monitoring. * 8. HTN: BP now in 110s systolic. WIll contine holding BP meds for now. 9. DVT prophylaxis: heparin 10. GI prophylaxis: pantoprazole 11. Code status: full code Code Visit Inpatient E&M: 21867 Subs Hosp L3
[2018-05-17] MEDS: Ceftriaxone 1 GM/50 ML BAG IV ×2 (10:32→21:56)
[2018-05-17] MEDS: predniSONE 20 MG Tablet 40 MG PO (10:34)
[2018-05-17] MEDS: Enoxaparin 40 MG/0.4 ML Syringe SC (17:03)
[2018-05-18] VITALS (39 sets, daily range): BP systolic 87–126; BP diastolic 49–92; PULSE 82–137; RESP 12–44; TEMP 35.8–37.4; O2SAT 80–96
[2018-05-18] MEDS: Acetaminophen/Codeine #3 Tablet 1 TABLET PO ×4 (01:38→22:43)
[2018-05-18] MEDS: Acetaminophen 325 MG Tablet 650 MG PO (05:02)
[2018-05-18 05:12] LABS: Absolute Lymphocyte Count 0.86 X10^3/ul (0.83-4.51); Absolute Neutrophil Count 12.2 X10^3/uL (2.0-7.7); Basophil# 0.01 X10^3/uL; Basophil% 0.1 % (0-1); Eosinophil# 0.04 X10^3/uL; Eosinophils% 0.3 % (0-5); Hematocrit 38.2 % (37-47); Hemoglobin 12.4 g/dl (12.0-15.0); Lymphocyte # 0.86 X10^3/ul (4.0); Lymphocyte % 6.4 % (19-41); Mean Corp Hgb Conc 32.5 g/gl (32-36); Mean Corpuscular Hgb 30.5 pg (27.0-32.0); Mean Corpuscular Volume 94.1 fL (81-99); Mean Platelet Vol. 10.8 fl (6.2-12.0); Monocyte# 0.23 X10^3/uL; Monocyte% 1.7 % (0-10); Neutrophil # 12.24 X10^3/uL (2.7-7.7); Neutrophil % 91.3 % (47-70); Platelet Count 144 K/mm3 (150-450); RBC Distribution Width CV 14.8 % (11.6-14.6); RBC Distribution Width SD 50.5 fl (35.1-43.9); Red Blood Count 4.06 M/mm3 (4.2-5.4); White Blood Count 13.4 K/mm3 (4.4-11.0)
[2018-05-18 05:13] LABS: POSITIVE COUNT NO; POSITIVE DIFFERENTIAL NO; POSITIVE MORPHOLOGY NO
[2018-05-18 05:22] LABS: Anion Gap 9 (5-15); BUN 17 mg/dL (7-18); BUN/Creat Ratio 29.6 RATIO (10-20); Calcium,Total 8.2 mg/dL (8.5-10.1); Chloride 95 mmol/L (98-107); Creatinine, Serum 0.57 mg/dL (0.55-1.02); EST Glomerular Filtration Rate 111 mL/min (>60); Est Glom Filt Rate - Afr Amer 135 mL/min (>60); Estimated Creatinine Clearance 61.53 ml/min; Glucose 100 mg/dL (74-106); Potassium 4.1 mmol/L (3.5-5.1); Sodium Level 136 mmol/L (136-145)
--- NOTE | 2018-05-18 05:32 | PCM.PN.INT ---
Subjective: The patient was seen and examined at the bedside this morning. Events from the last 24 hours have been reviewed. The patient is currently afebrile, hemodynamically stable and maintaining appropriate oxygen saturations on BiPAP. The patient has been essentially on noninvasive positive pressure ventilation for most of yesterday and overnight. She denies the presence of a cough, but does report shortness of breath. Objective: The patient's most recent lab work, culture data and imaging studies have all been personally reviewed. Blood and urine cultures have shown no growth to date. General: Alert, Cooperative, No apparent distress HEENT: Atraumatic, PERRLA, Normocephalic Oral: Dry Mucosa Neck: Supple, No Nodes, Trachea Midline Lungs: - - Diminished bilaterally with basilar predominant crackles and expiratory wheezes. Cardiovascular: Normal S1, Normal S2, No murmurs, No rub noted, No Gallop, Tachycardic Abdomen: Bowel Sounds Present, Soft, Non Tender, Obese Extremities: No clubbing, No cyanosis, No edema, Capillary Refill Less than 3 Seconds Skin: - - No significant change from previous. Musculoskeletal: No Tenderness to Palpation of Joints or Extremities, No Muscle Wasting Lymphatic: No Cervical, Supraclavicular, or Inguinal Adenopathy Neurological: Neuro grossly intact Psych/Mental Status: Normal Affect, Appropriate Vital Signs Temp Pulse Resp BP Pulse Ox 98.9 F 97 28 H 107/57 L 92 05/18/18 04:00 05/18/18 04:00 05/18/18 04:00 05/18/18 04:00 05/18/18 04:00 Oxygen Flow Rate (L/min) 15 Oxygen Delivery Method Bi-pap Weight: 157 lb 6.561 oz Intake and Output for Last 24 Hours 05/16/18 05/17/18 05/18/18 23:59 23:59 23:59 Intake Total 857 / 857 615 / 615 55 / 55 Output Total 315 / 315 600 / 600 415 / 415 Balance 542 / 542 -360 / -360 Labs (Last 48 Hours) 05/16/18 05/17/18 05/17/18 10:40 01:26 05:20 WBC 10.6 RBC 3.88 L Hgb 11.9 L Hct 36.6 L MCV 94.3 MCH 30.7 MCHC 32.5 RDW 14.7 H RDW Differential 50.0 H Plt Count 136 L MPV 11.3 Immature Gran % (Auto) 0.200 Neut % (Auto) 92.1 H Lymph % (Auto) 5.8 L [place] % (Auto) 1.4 Eos % (Auto) 0.4 Baso % (Auto) 0.1 Absolute Neuts (auto) 9.8 H Absolute Lymphs (auto) 0.61 L Total Counted Not Reportable Specimen Type ART Sample Site L Radial pH 7.47 H Bicarbonate Actual 28.4 H POC Total CO2 30 Base Excess 5 H O2 Saturation 100 H O2 % 90 ABG pCO2 39.2 ABG pO2 199 H Domenico Test POS Respiration Rate 12 O2 Delivery Device Bi / C PAP EPAP 10 IPAP 18 Blood Gas Notified Whom [facility] Blood Gas Notified Time 122 Sodium Potassium Chloride Carbon Dioxide Anion Gap BUN Creatinine Estim Creat Clear Calc Est GFR (MDRD) Af Amer Est GFR (MDRD) Non-Af BUN/Creatinine Ratio Glucose Calcium MRSA (PCR) Negative 05/17/18 05/18/18 05/18/18 05:20 05:00 05:00 WBC 13.4 H RBC 4.06 L Hgb 12.4 Hct 38.2 MCV 94.1 MCH 30.5 MCHC 32.5 RDW 14.8 H RDW Differential 50.5 H Plt Count 144 L MPV 10.8 Immature Gran % (Auto) 0.200 Neut % (Auto) 91.3 H Lymph % (Auto) 6.4 L [place] % (Auto) 1.7 Eos % (Auto) 0.3 Baso % (Auto) 0.1 Absolute Neuts (auto) 12.2 H Absolute Lymphs (auto) 0.86 Total Counted Not Reportable Specimen Type Sample Site pH Bicarbonate Actual POC Total CO2 Base Excess O2 Saturation O2 % ABG pCO2 ABG pO2 Domenico Test Respiration Rate O2 Delivery Device EPAP IPAP Blood Gas Notified Whom Blood Gas Notified Time Sodium 135 L 136 Potassium 3.5 4.1 Chloride 98 95 L Carbon Dioxide 29.0 32.0 Anion Gap 8 9 BUN 15 17 Creatinine 0.53 L 0.57 Estim Creat Clear Calc 61.96 61.53 Est GFR (MDRD) Af Amer 148 135 Est GFR (MDRD) Non-Af 122 111 BUN/Creatinine Ratio 28.4 H 29.6 H Glucose 96 100 Calcium 7.4 L 8.2 L MRSA (PCR) Clinical Impression(s) from Imaging Studies Chest X-Ray 05/16/18 07:04 IMPRESSION: Moderate cardiomegaly with increased interstitial markings in both lung bases. No pleural effusions Electronically Signed: Kj Booth, at 7:42 EDT Tel , Service support , Medical Necessity - Tobacco Use Smoking Status: Former smoker Tobacco Use: Non-smoker Assessment/Plan All Active Problems (Last Updated 05/16/18 @ 10:38 by Carolina Thompson) Dyspnea (Acute) Tendinitis (Acute) Shortness of breath (Acute) IPF (idiopathic pulmonary fibrosis) (Acute) Diarrhea (Acute) Cataracts, bilateral (Acute) History of pneumonia (Acute) RECOMMENDATIONS: 1. Administer IV Lasix ?1 today. 2. Transition patient to AVAPS. 3. Continue scheduled DuoNeb, budesonide and baseline prednisone dose. 4. Wean supplemental oxygen as tolerated. 5. Continue Lovenox for DVT prophylaxis 6. Obtain recent records from the [facility], regarding the patient's recent evaluation and 6 minute walk test. 7. Obtain repeat plain film chest x-ray this morning. IMPRESSIONS: 1. Acute on chronic hypoxemic respiratory failure The patient has underlying COPD and progressive interstitial lung disease, for which she was recently referred to the [facility] for evaluation of lung transplantation. The patient reports that she was told that she was a good candidate for transplantation and is currently amidst the workup required to undergo such or surgery. Her baseline respiratory status has been a bit tenuous in light of the recent heat and humidity. Her underlying interstitial lung disease will continue to progress. Accordingly, it is highly likely that her baseline supplemental oxygen requirement will also continue to increase. Patient has been essentially dependent on noninvasive positive pressure ventilation over the last 24 hours. Recommend transitioning from BiPAP to AVAPS. The patient will be continued on scheduled DuoNeb's, budesonide and baseline prednisone dose. In addition, a one-time dose of IV Lasix will be administered today. Recommend obtaining repeat plain film chest x-ray. Will attempt to obtain outside medical records from the [facility] regarding the patient's recent workup. 2. Sepsis secondary to presumptive gastroenteritis versus cystitis Continue antibiotics while awaiting infectious workup. 3. Baseline chronic obstructive pulmonary disease and progressive interstitial lung disease Continue baseline bronchodilators and chronic prednisone therapy. The patient does have a history of progressive interstitial lung disease along with COPD. Recommend continued outpatient follow-up with the [facility] for lung transplantation evaluation. 4. Mild hypovolemic hyponatremia Resolving. Improved with intravascular volume expansion. This note was generated with [employer] love [employer] you dictation software. It may contain incorrect words, spelling, and punctuation that were not noted in checking the note before signing. Code Visit Inpatient E&M: 08456 Subs Hosp L3
--- NOTE | 2018-05-18 06:45 | RAD_ITS ---
STUDY: X-RAY CHEST REASON FOR EXAM: Female, 67 years old. Shortness of breath. TECHNIQUE: Single AP portable view of the chest. Patient is mildly rotated. COMPARISON: 05/16/2018 FINDINGS: There are interstitial fibrotic and pneumonic infiltrative changes of the lungs, left side more than the right again demonstrated increased since the prior exam. Low lung volumes. There is pleural fibrotic scarring of the costophrenic angles. There is mild/moderate cardiac enlargement. Prominent bilateral hilar soft tissue. Normal visualized pulmonary arteries. Normal visualized aortic arch and descending thoracic aorta. There are diffuse degenerative changes of the visualized thoracic spine. There is no demonstrated abnormality of the visualized soft tissue structures of the upper abdomen. RAD/Chest 1 View (Portable) IMPRESSION: 1. Mixed pulmonary interstitial fibrotic and pneumonic infiltrates, left side greater than the right again demonstrated, worsened since the prior exam. 2. Stable mild/moderate cardiomegaly. Electronically Signed: Rica Lopez MD at 7:27 EDT Tel , Service support ,
[2018-05-18] MEDS: Budesonide Respules 0.5 MG/2 ML AMPUL.NEB. INHALATION ×2 (07:00→20:34)
[2018-05-18] MEDS: Ipratropium/Albuterol Sulfate 3 ML AMPUL.NEB INHALATION ×3 (07:00→20:33)
[2018-05-18] MEDS: Furosemide 20 MG/2 ML VIAL IV (08:13)
[2018-05-18] MEDS: 0.9% NaCl Peripheral Flush Adult/Peds IV ×4 (08:13→19:54)
--- NOTE | 2018-05-18 09:32 | PCM.PN.HOSP ---
Patient Problems: Active and Suspected Problems (Last Updated 05/16/18 @ 10:38 by Carolina Thompson) Diarrhea (Acute) Objective: Patient is a 67-year-old female with a history of interstitial lung disease on home oxygen of 46 L and hypertension was admitted with a 3 day history of diarrhea and dehydration. UA was also found to be positive for UTI and she is being managed for sepsis with UTI and acute on chronic respiratory failure as well as gastroenteritis. Patient was admitted to the ICU and started on IV ceftriaxone and IV fluids. Patient has been on BiPAP since yesterday because of worsening acute on chronic respiratory failure. Seen and examined. Per discussion with nurse, she tolerated 2 short episodes of pain off of BiPAP for about an hour each but had to be on it overnight. Patient was on BiPAP at time of review. She denied any fever or chills but admitted shortness of breath. She denied any cough or chest pain, any abdominal pain, any diarrhea or vomiting. Review of systems otherwise negative. Vitals/I&O's: Vital Signs Temp Pulse Resp BP Pulse Ox 97.1 F L 126 H 32 H 108/62 85 05/18/18 09:00 05/18/18 09:00 05/18/18 09:00 05/18/18 09:00 05/18/18 09:00 Oxygen Flow Rate (L/min) 15 Oxygen Delivery Method Bi-pap Weight: 157 lb 6.561 oz Intake and Output for Last 24 Hours 05/16/18 05/17/18 05/18/18 23:59 23:59 23:59 Intake Total 857 / 857 615 / 615 155 / 155 Output Total 315 / 315 600 / 600 415 / 415 Balance 542 / 542 15 -260 / -260 General: Alert, Oriented x3, Cooperative, - - mild distress HEENT: Atraumatic, PERRLA, EOMI, Normocephalic Oral: Moist Mucosa Neck: Supple, No JVD, Negative Carotid Bruits Lungs: - - On BIPAP. Has mild wheezing and few crackles bilaterally on auscultation Cardiovascular: Regular Rhythm, Normal S1, Normal S2, No murmurs, Tachycardic Abdomen: Bowel Sounds Present, Soft, Non Tender, Non-Distended, No Hepato-splenomegaly Extremities: No clubbing, No cyanosis, No edema, Capillary Refill Less than 3 Seconds Skin: No rashes, No breakdown Musculoskeletal: No Tenderness to Palpation of Joints or Extremities Lymphatic: No Cervical, Supraclavicular, or Inguinal Adenopathy Neurological: Cranial nerves II-XII grossly intact Psych/Mental Status: Normal Affect, Appropriate, Alert and oriented to time, place, person, mood and affect Laboratory Results 05/18/18 05:00: WBC 13.4 H, RBC 4.06 L, Hgb 12.4, Hct 38.2, MCV 94.1, MCH 30.5, MCHC 32.5, RDW 14.8 H, RDW Differential 50.5 H, Plt Count 144 L, MPV 10.8, Immature Gran % (Auto) 0.200, Neut % (Auto) 91.3 H, Lymph % (Auto) 6.4 L, [place] % (Auto) 1.7, Eos % (Auto) 0.3, Baso % (Auto) 0.1, Absolute Neuts (auto) 12.2 H, Absolute Lymphs (auto) 0.86, Total Counted Not Reportable 05/18/18 05:00: Sodium 136, Potassium 4.1, Chloride 95 L, Carbon Dioxide 32.0, Anion Gap 9, BUN 17, Creatinine 0.57, Estim Creat Clear Calc 61.53, Est GFR (MDRD) Af Amer 135, Est GFR (MDRD) Non-Af 111, BUN/Creatinine Ratio 29.6 H, Glucose 100, Calcium 8.2 L Current Medications Acetaminophen (Tylenol) 650 mg PO Q6H PRN PRN PRN Reason: FEVER Last Admin: 05/18/18 05:02 Dose: 650 mg Acetaminophen/Codeine Phosphate (Tylenol#3) 1 tablet PO Q6H PRN PRN PRN Reason: PAIN Last Admin: 05/18/18 08:06 Dose: 1 tablet Albuterol Sulfate (Ventolin Aerosols) 2.5 mg INHALATION Q2H PRN PRN PRN Reason: WHEEZING Albuterol/Ipratropium (Duoneb) 3 ml INHALATION Q6HWA.RT [place] Last Admin: 05/18/18 07:00 Dose: 3 ml Budesonide (Pulmicort Aerosol) 0.5 mg INHALATION Q12H.RT [place] Last Admin: 05/18/18 07:00 Dose: 0.5 mg Cholecalciferol (Vitamin D) 2,000 unit PO DAILY [facility] Last Admin: 05/17/18 10:34 Dose: 2,000 unit Enoxaparin Sodium (Lovenox) 40 mg SC DAILY@1000 [facility] Last Admin: 05/17/18 17:03 Dose: 40 mg Famotidine (Pepcid) 20 mg PO DAILY [facility] Ceftriaxone Sodium (Rocephin) 1 gm in 50 mls @ 100 mls/hr IV Q12 [facility] Last Admin: 05/17/18 21:56 Dose: 100 mls/hr Magnesium Hydroxide (Milk Of Magnesia) 30 ml PO DAILY PRN PRN PRN Reason: Constipation Morphine Sulfate (Roxanol (Ir Oral Solution)) 2.5 mg PO Q4H PRN PRN PRN Reason: Dyspnea Nutritional Formula (Lactose Free) (Ensure Enlive) 120 ml PO 4X/DAY [facility] Last Admin: 05/17/18 23:15 Dose: Not Given Prednisone () 40 mg PO DAILY [facility] Last Admin: 05/17/18 10:34 Dose: 40 mg Sodium Chloride () 5 - 30 ml IV UD PRN PRN Reason: SALINE FLUSH Last Admin: 05/18/18 08:13 Dose: 10 ml Medical Necessity - Tobacco Use Smoking Status: Former smoker Tobacco Use: Non-smoker Assessment/Plan All Active Problems (Last Updated 05/16/18 @ 10:38 by Carolina Thompson) Dyspnea (Acute) Tendinitis (Acute) Shortness of breath (Acute) IPF (idiopathic pulmonary fibrosis) (Acute) Diarrhea (Acute) Cataracts, bilateral (Acute) History of pneumonia (Acute) 67-year-old female with a history of interstitial lung disease on home oxygen and hypertension presenting with a 3 day history of diarrhea and dehydration. 1. Acute on chronic respiratory failure due to interstitial lung disease Been on BiPAP since yesterday. Currently still on BiPAP and is tachycardic. Plan is to wean off BiPAP. Per cell pourer, transition to a VAP yesterday. Records to be obtained from [facility] with regards to her recent 6 minute walk test and reevaluation. on breathing treatments for repeat CXR tomorrow aim for saturation >88% given one dose of IV lasix today, per cell pourer. 2. UTI resolving. On IV ceftriaxone. Urine culture and blood culture negative will continue switch to oral antibiotics today 3. Gastroenteritis Resolved. 4. Hypotension: resolved. 5. Interstitial lung disease: diagnosed 2016. Now on BIPAP as mentioned above. Being worked up for transplant in [facility]. remains very tachypneic, and is on BiPAP. being transitioned to AVAPs. plan to wean off gradually on his oxygen via nasal cannula as tolerated and to maintain oxygen saturation above 88% P.o. prednisone. Of note, patient also on trilogy at home which has not been compliant with. 6. Hypovolemic hypotonic hyponatremia Resolving. Was likely due to dehydration. Sodium is up to 135 today from 130 on admission. Will continue monitoring. 7. HTN: BP now in 110s systolic. WIll contine holding BP meds for now. 8. DVT prophylaxis: heparin 9. GI prophylaxis: famotidine 10. Code status: full code. patient wants to be intubated if need be. Code Visit Inpatient E&M: [id number] [facility] Hosp L3
--- NOTE | 2018-05-18 09:46 | CM.UR ---
Participated in interdisciplinary rounds. Her resp status has slightly worsened since yesterday. Worsening tachycardia and tachypnea. Patient remains tachypneic with resp high 20-30s. On continuous bipap, switched to avaps during rounds. Awaiting records from [facility], where she is being worked up for a lung transplant. Case management will continue to follow. Angel Dickey RN, CCM.
--- NOTE | 2018-05-18 09:52 | PN_ITS ---
Patient Problems: Active and Suspected Problems (Last Updated 05/16/18 @ 10:38 by Carolina Thompson) Diarrhea (Acute) Objective: Patient is a 67-year-old female with a history of interstitial lung disease on home oxygen of 46 L and hypertension was admitted with a 3 day history of diarrhea and dehydration. UA was also found to be positive for UTI and she is being managed for sepsis with UTI and acute on chronic respiratory failure as well as gastroenteritis. Patient was admitted to the ICU and started on IV ceftriaxone and IV fluids. Patient has been on BiPAP since yesterday because of worsening acute on chronic respiratory failure. Seen and examined. Per discussion with nurse, she tolerated 2 short episodes of pain off of BiPAP for about an hour each but had to be on it overnight. Patient was on BiPAP at time of review. She denied any fever or chills but admitted shortness of breath. She denied any cough or chest pain, any abdominal pain, any diarrhea or vomiting. Review of systems otherwise negative. Vitals/I&O's: Vital Signs Temp Pulse Resp BP Pulse Ox 97.1 F L 126 H 32 H 108/62 85 05/18/18 09:00 05/18/18 09:00 05/18/18 09:00 05/18/18 09:00 05/18/18 09:00 Oxygen Flow Rate (L/min) 15 Oxygen Delivery Method Bi-pap Weight: 157 lb 6.561 oz Intake and Output for Last 24 Hours 05/16/18 05/17/18 05/18/18 23:59 23:59 23:59 Intake Total 857 / 857 615 / 615 155 / 155 Output Total 315 / 315 600 / 600 415 / 415 Balance 542 / 542 15 -260 / -260 General: Alert, Oriented x3, Cooperative, - - mild distress HEENT: Atraumatic, PERRLA, EOMI, Normocephalic Oral: Moist Mucosa Neck: Supple, No JVD, Negative Carotid Bruits Lungs: - - On BIPAP. Has mild wheezing and few crackles bilaterally on auscultation Cardiovascular: Regular Rhythm, Normal S1, Normal S2, No murmurs, Tachycardic Abdomen: Bowel Sounds Present, Soft, Non Tender, Non-Distended, No Hepato- splenomegaly Extremities: No clubbing, No cyanosis, No edema, Capillary Refill Less than 3 Seconds Skin: No rashes, No breakdown Musculoskeletal: No Tenderness to Palpation of Joints or Extremities Lymphatic: No Cervical, Supraclavicular, or Inguinal Adenopathy Neurological: Cranial nerves II-XII grossly intact Psych/Mental Status: Normal Affect, Appropriate, Alert and oriented to time, place, person, mood and affect Laboratory Results 05/18/18 05:00: WBC 13.4 H, RBC 4.06 L, Hgb 12.4, Hct 38.2, MCV 94.1, MCH 30.5, MCHC 32.5, RDW 14.8 H, RDW Differential 50.5 H, Plt Count 144 L, MPV 10.8, Immature Gran % (Auto) 0.200, Neut % (Auto) 91.3 H, Lymph % (Auto) 6.4 L, [place] % (Auto) 1.7, Eos % (Auto) 0.3, Baso % (Auto) 0.1, Absolute Neuts (auto) 12.2 H , Absolute Lymphs (auto) 0.86, Total Counted Not Reportable 05/18/18 05:00: Sodium 136, Potassium 4.1, Chloride 95 L, Carbon Dioxide 32.0, Anion Gap 9, BUN 17, Creatinine 0.57, Estim Creat Clear Calc 61.53, Est GFR ( MDRD) Af Amer 135, Est GFR (MDRD) Non-Af 111, BUN/Creatinine Ratio 29.6 H, Glucose 100, Calcium 8.2 L Current Medications Acetaminophen (Tylenol) 650 mg PO Q6H PRN PRN PRN Reason: FEVER Last Admin: 05/18/18 05:02 Dose: 650 mg Acetaminophen/Codeine Phosphate (Tylenol#3) 1 tablet PO Q6H PRN PRN PRN Reason: PAIN Last Admin: 05/18/18 08:06 Dose: 1 tablet Albuterol Sulfate (Ventolin Aerosols) 2.5 mg INHALATION Q2H PRN PRN PRN Reason: WHEEZING Albuterol/Ipratropium (Duoneb) 3 ml INHALATION Q6HWA.RT [place] Last Admin: 05/18/18 07:00 Dose: 3 ml Budesonide (Pulmicort Aerosol) 0.5 mg INHALATION Q12H.RT [place] Last Admin: 05/18/18 07:00 Dose: 0.5 mg Cholecalciferol (Vitamin D) 2,000 unit PO DAILY [facility] Last Admin: 05/17/18 10:34 Dose: 2,000 unit Enoxaparin Sodium (Lovenox) 40 mg SC DAILY@1000 [facility] Last Admin: 05/17/18 17:03 Dose: 40 mg Famotidine (Pepcid) 20 mg PO DAILY [facility] Ceftriaxone Sodium (Rocephin) 1 gm in 50 mls @ 100 mls/hr IV Q12 [facility] Last Admin: 05/17/18 21:56 Dose: 100 mls/hr Magnesium Hydroxide (Milk Of Magnesia) 30 ml PO DAILY PRN PRN PRN Reason: Constipation Morphine Sulfate (Roxanol (Ir Oral Solution)) 2.5 mg PO Q4H PRN PRN PRN Reason: Dyspnea Nutritional Formula (Lactose Free) (Ensure Enlive) 120 ml PO 4X/DAY [facility] Last Admin: 05/17/18 23:15 Dose: Not Given Prednisone () 40 mg PO DAILY [facility] Last Admin: 05/17/18 10:34 Dose: 40 mg Sodium Chloride () 5 - 30 ml IV UD PRN PRN Reason: SALINE FLUSH Last Admin: 05/18/18 08:13 Dose: 10 ml Medical Necessity - Tobacco Use Smoking Status: Former smoker Tobacco Use: Non-smoker Assessment/Plan All Active Problems (Last Updated 05/16/18 @ 10:38 by Carolina Thompson) Dyspnea (Acute) Tendinitis (Acute) Shortness of breath (Acute) IPF (idiopathic pulmonary fibrosis) (Acute) Diarrhea (Acute) Cataracts, bilateral (Acute) History of pneumonia (Acute) 67-year-old female with a history of interstitial lung disease on home oxygen and hypertension presenting with a 3 day history of diarrhea and dehydration. 1. Acute on chronic respiratory failure due to interstitial lung disease * Been on BiPAP since yesterday. Currently still on BiPAP and is tachycardic. * Plan is to wean off BiPAP. Per radiology nurse, transition to a VAP yesterday. * Records to be obtained from [facility] with regards to her recent 6 minute walk test and reevaluation. * on breathing treatments * for repeat CXR tomorrow * aim for saturation >88% * given one dose of IV lasix today, per radiology nurse. * 2. UTI * resolving. On IV ceftriaxone. Urine culture and blood culture negative * will continue switch to oral antibiotics today * 3. Gastroenteritis * Resolved. 4. Hypotension: resolved. 5. Interstitial lung disease: * diagnosed 2016. Now on BIPAP as mentioned above. Being worked up for transplant in [facility]. * remains very tachypneic, and is on BiPAP. being transitioned to AVAPs. * plan to wean off gradually on his oxygen via nasal cannula as tolerated and to maintain oxygen saturation above 88% * P.o. prednisone. * Of note, patient also on trilogy at home which has not been compliant with. * 6. Hypovolemic hypotonic hyponatremia * Resolving. Was likely due to dehydration. Sodium is up to 135 today from 130 on admission. * Will continue monitoring. * 7. HTN: BP now in 110s systolic. WIll contine holding BP meds for now. 8. DVT prophylaxis: heparin 9. GI prophylaxis: famotidine 10. Code status: full code. patient wants to be intubated if need be. Code Visit Inpatient E&M: 84203 Subs Hosp L3
--- NOTE | 2018-05-18 10:29 | CPS ---
Changed mask from a small to a medium.
[2018-05-18] MEDS: Enoxaparin 40 MG/0.4 ML Syringe SC (11:02)
[2018-05-18] MEDS: Ceftriaxone 1 GM/50 ML BAG IV ×2 (11:05→22:37)
[2018-05-18] MEDS: Morphine 2 MG/ML Syringe 1 MG IV ×2 (12:10→19:53)
[2018-05-19] VITALS (35 sets, daily range): BP systolic 85–132; BP diastolic 58–108; PULSE 106–128; RESP 12–40; TEMP 35.7–36; O2SAT 85–95
[2018-05-19] MEDS: Ipratropium/Albuterol Sulfate 3 ML AMPUL.NEB INHALATION ×2 (06:50→12:52)
[2018-05-19] MEDS: Budesonide Respules 0.5 MG/2 ML AMPUL.NEB. INHALATION (06:50)
[2018-05-19 07:11] LABS: Absolute Lymphocyte Count 1.12 X10^3/ul (0.83-4.51); Absolute Neutrophil Count 12.6 X10^3/uL (2.0-7.7); Basophil# 0.02 X10^3/uL; Basophil% 0.1 % (0-1); Hematocrit 39.5 % (37-47); Hemoglobin 12.9 g/dl (12.0-15.0); Lymphocyte # 1.12 X10^3/ul (4.0); Lymphocyte % 7.8 % (19-41); Mean Corp Hgb Conc 32.7 g/gl (32-36); Mean Corpuscular Hgb 30.4 pg (27.0-32.0); Mean Corpuscular Volume 93.2 fL (81-99); Mean Platelet Vol. 11.6 fl (6.2-12.0); Monocyte# 0.54 X10^3/uL; Monocyte% 3.8 % (0-10); Neutrophil # 12.57 X10^3/uL (2.7-7.7); Neutrophil % 87.7 % (47-70); Platelet Count 160 K/mm3 (150-450); RBC Distribution Width SD 49.7 fl (35.1-43.9); Red Blood Count 4.24 M/mm3 (4.2-5.4); White Blood Count 14.3 K/mm3 (4.4-11.0)
[2018-05-19 07:29] LABS: POSITIVE COUNT NO; POSITIVE DIFFERENTIAL NO; POSITIVE MORPHOLOGY NO
[2018-05-19 07:34] LABS: Anion Gap 10 (5-15); BUN 37 mg/dL (7-18); BUN/Creat Ratio 38.2 RATIO (10-20); Calcium,Total 8.6 mg/dL (8.5-10.1); Chloride 95 mmol/L (98-107); Creatinine, Serum 0.97 mg/dL (0.55-1.02); EST Glomerular Filtration Rate 61 mL/min (>60); Est Glom Filt Rate - Afr Amer 74 mL/min (>60); Estimated Creatinine Clearance 62.46 ml/min; Glucose 135 mg/dL (74-106); Sodium Level 135 mmol/L (136-145)
--- NOTE | 2018-05-19 07:54 | CPS ---
Took patient off Bipap, Dr. Su at bedside. Placed pt on 15L HFNC and NRB. Patient spO2 quickly dropped to 69%. Placed pt back on bipap and pt spO2 88%.
--- NOTE | 2018-05-19 09:28 | PCM.PN.HOSP ---
Patient Problems: Active and Suspected Problems (Last Updated 05/16/18 @ 10:38 by Carolina Thompson) Diarrhea (Acute) Subjective: Patient seen and examined. She has been on BIPAP since yesterday, and wants a break from it. She denies any other complaints apart from SOB. SHe denies fever, chills, cough, chest pain, abdominal pain, diarrhea or vomiting. Review of systems otherwise negative. During review, patient was 15 L of oxygen first by nasal cannula and then by nonrebreather mask. Saturation dropped to as low as 67%. Will put back on BiPAP. Patient is to have a conversation with Dr. Enriquez and her family today about long-term plan and intubation if needed. Vitals/I&O's: Vital Signs Temp Pulse Resp BP Pulse Ox 96.6 F L 116 H 35 H 111/68 88 05/19/18 00:00 05/19/18 07:20 05/19/18 07:20 05/19/18 07:00 05/19/18 07:20 Oxygen Flow Rate (L/min) 15 Oxygen Delivery Method Bi-pap Weight: 154 lb 15.759 oz Intake and Output for Last 24 Hours 05/17/18 05/18/18 05/19/18 23:59 23:59 23:59 Intake Total 615 / 615 446 / 446 50 / 50 Output Total 600 / 600 1215 / 1215 100 / 100 Balance -769 / -769 -50 / -50 General: Alert, Oriented x3, Cooperative, - - In significant respiratory distress. HEENT: Atraumatic, PERRLA, EOMI, Normocephalic Oral: Moist Mucosa Neck: Supple, No JVD, Negative Carotid Bruits Lungs: Short of Breath, Tachypneic, Using Accessory Muscles, - - has coarse crackles with wheezing bilaterally in all lung beasley. Cardiovascular: Regular Rhythm, Normal S1, Normal S2, No murmurs, Tachycardic Abdomen: Bowel Sounds Present, Soft, Non Tender, Non-Distended, No Hepato-splenomegaly Extremities: No clubbing, No cyanosis, No edema, Capillary Refill Less than 3 Seconds Skin: No rashes, No breakdown Musculoskeletal: No Tenderness to Palpation of Joints or Extremities, No Muscle Wasting Lymphatic: No Cervical, Supraclavicular, or Inguinal Adenopathy Neurological: Cranial nerves II-XII grossly intact, Deep Tendon Reflexes 2+/4 and Symmetrical, Neuro grossly intact, Motor Exam 5/5 strength throughout Psych/Mental Status: Anxious, Alert and oriented to time, place, person, mood and affect Laboratory Results 05/19/18 07:00: WBC 14.3 H, RBC 4.24, Hgb 12.9, Hct 39.5, MCV 93.2, MCH 30.4, MCHC 32.7, RDW 15.0 H, RDW Differential 49.7 H, Plt Count 160, MPV 11.6, Immature Gran % (Auto) 0.600, Neut % (Auto) 87.7 H, Lymph % (Auto) 7.8 L, [place] % (Auto) 3.8, Eos % (Auto) 0.0, Baso % (Auto) 0.1, Absolute Neuts (auto) 12.6 H, Absolute Lymphs (auto) 1.12, Total Counted Not Reportable 05/19/18 07:00: Sodium 135 L, Potassium 4.0, Chloride 95 L, Carbon Dioxide 30.0, Anion Gap 10, BUN 37 H, Creatinine 0.97, Estim Creat Clear Calc 62.46, Est GFR (MDRD) Af Amer 74, Est GFR (MDRD) Non-Af 61, BUN/Creatinine Ratio 38.2 H, Glucose 135 H, Calcium 8.6 Current Medications Acetaminophen (Tylenol) 650 mg PO Q6H PRN PRN PRN Reason: FEVER Last Admin: 05/18/18 05:02 Dose: 650 mg Acetaminophen/Codeine Phosphate (Tylenol#3) 1 tablet PO Q6H PRN PRN PRN Reason: PAIN Last Admin: 05/18/18 22:43 Dose: 1 tablet Albuterol Sulfate (Ventolin Aerosols) 2.5 mg INHALATION Q2H PRN PRN PRN Reason: WHEEZING Albuterol/Ipratropium (Duoneb) 3 ml INHALATION Q6HWA.RT [facility]SHAWN Last Admin: 05/19/18 06:50 Dose: 3 ml Budesonide (Pulmicort Aerosol) 0.5 mg INHALATION Q12H.RT [facility]WN Last Admin: 05/19/18 06:50 Dose: 0.5 mg Cholecalciferol (Vitamin D) 2,000 unit PO DAILY [facility] Last Admin: 05/18/18 12:16 Dose: Not Given Enoxaparin Sodium (Lovenox) 40 mg SC DAILY@1000 [facility] Last Admin: 05/18/18 11:02 Dose: 40 mg Famotidine (Pepcid) 20 mg PO DAILY [facility] Last Admin: 05/18/18 12:18 Dose: Not Given Ceftriaxone Sodium (Rocephin) 1 gm in 50 mls @ 100 mls/hr IV Q12 [facility] Last Admin: 05/18/18 22:37 Dose: 100 mls/hr Sodium Chloride () 250 mls @ 15 mls/hr IV .[id number] PRN PRN Reason: SALINE FLUSH Magnesium Hydroxide (Milk Of Magnesia) 30 ml PO DAILY PRN PRN PRN Reason: Constipation Methylprednisolone (Solu-Medrol) 40 mg IV DAILY [facility] Last Admin: 05/18/18 13:29 Dose: 40 mg Morphine Sulfate () 1 mg IV Q4H PRN PRN PRN Reason: Shortness of Breath Last Admin: 05/18/18 19:53 Dose: 1 mg Nutritional Formula (Lactose Free) (Ensure Clear) 120 ml PO 4X/DAY [facility] Last Admin: 05/19/18 01:47 Dose: Not Given Sodium Chloride () 5 - 30 ml IV UD PRN PRN Reason: SALINE FLUSH Last Admin: 05/18/18 19:54 Dose: 10 ml Medical Necessity - Tobacco Use Smoking Status: Former smoker Tobacco Use: Non-smoker Assessment/Plan All Active Problems (Last Updated 05/16/18 @ 10:38 by Carolina Thompson) Dyspnea (Acute) Tendinitis (Acute) Shortness of breath (Acute) IPF (idiopathic pulmonary fibrosis) (Acute) Diarrhea (Acute) Cataracts, bilateral (Acute) History of pneumonia (Acute) 67-year-old female with a history of interstitial lung disease on home oxygen and hypertension presenting with a 3 day history of diarrhea and dehydration. 1. Acute on chronic respiratory failure due to interstitial lung disease Therapy tachypneic and tachycardic was on BiPAP over the last 24 hours. Attempts were made to put patient on oxygen by nasal cannula nonrebreather mask this morning but was unsuccessful as she desaturated 67%. Patient put right back on BiPAP. Remains on breathing treatments. Chest x-ray done 05/18/2018 showed mixed pulmonary interstitial fibrotic and pneumonic infiltrates with grade on the left side on the right and worsened since prior exam and moderate stable cardiomegaly. pulmonology on board; patient and family to have conversation with geriatric personal care aide about the manager long term care plan for pulmonary fibrosis and desire for intubation if needed. to keep sPO2>88%, 2. UTI resolving. On IV ceftriaxone. Urine culture and blood culture negative will dc IV ceftriaxone today 5. Interstitial lung disease: diagnosed 2016. Remains onBIPAP as mentioned above. Being worked up for transplant in [facility]. remains very tachypneic, and is unable to wean to oxygen by nasal canula now on IV solumedrol 40mg daily. pulmo on board 6. Hypovolemic hypotonic hyponatremia Resolving. Na remains at 135. Will continue monitoring. 7. HTN: controlled. BP meds held on she due to hypotension. Blood pressures remained in the 110s and 120s systolic even whilst of blood pressure medications. Will continue holding blood pressure medications and monitor. 8. DVT prophylaxis: heparin 9. GI prophylaxis: famotidine 10. Code status: full code. Family to have discussed with sew out operator today about desire for intubation and long-term plan. Code Visit Inpatient E&M: [id number] [facility] H[facility] L3
--- NOTE | 2018-05-19 09:39 | PN_ITS ---
Patient Problems: Active and Suspected Problems (Last Updated 05/16/18 @ 10:38 by Carolina Thompson) Diarrhea (Acute) Subjective: Patient seen and examined. She has been on BIPAP since yesterday, and wants a break from it. She denies any other complaints apart from SOB. SHe denies fever , chills, cough, chest pain, abdominal pain, diarrhea or vomiting. Review of systems otherwise negative. During review, patient was 15 L of oxygen first by nasal cannula and then by nonrebreather mask. Saturation dropped to as low as 67%. Will put back on BiPAP. Patient is to have a conversation with Dr. Enriquez and her family today about long-term plan and intubation if needed. Vitals/I&O's: Vital Signs Temp Pulse Resp BP Pulse Ox 96.6 F L 116 H 35 H 111/68 88 05/19/18 00:00 05/19/18 07:20 05/19/18 07:20 05/19/18 07:00 05/19/18 07:20 Oxygen Flow Rate (L/min) 15 Oxygen Delivery Method Bi-pap Weight: 154 lb 15.759 oz Intake and Output for Last 24 Hours 05/17/18 05/18/18 05/19/18 23:59 23:59 23:59 Intake Total 615 / 615 446 / 446 50 / 50 Output Total 600 / 600 1215 / 1215 100 / 100 Balance -769 / -769 -50 / -50 General: Alert, Oriented x3, Cooperative, - - In significant respiratory distress. HEENT: Atraumatic, PERRLA, EOMI, Normocephalic Oral: Moist Mucosa Neck: Supple, No JVD, Negative Carotid Bruits Lungs: Short of Breath, Tachypneic, Using Accessory Muscles, - - has coarse crackles with wheezing bilaterally in all lung beasley. Cardiovascular: Regular Rhythm, Normal S1, Normal S2, No murmurs, Tachycardic Abdomen: Bowel Sounds Present, Soft, Non Tender, Non-Distended, No Hepato- splenomegaly Extremities: No clubbing, No cyanosis, No edema, Capillary Refill Less than 3 Seconds Skin: No rashes, No breakdown Musculoskeletal: No Tenderness to Palpation of Joints or Extremities, No Muscle Wasting Lymphatic: No Cervical, Supraclavicular, or Inguinal Adenopathy Neurological: Cranial nerves II-XII grossly intact, Deep Tendon Reflexes 2+/4 and Symmetrical, Neuro grossly intact, Motor Exam 5/5 strength throughout Psych/Mental Status: Anxious, Alert and oriented to time, place, person, mood and affect Laboratory Results 05/19/18 07:00: WBC 14.3 H, RBC 4.24, Hgb 12.9, Hct 39.5, MCV 93.2, MCH 30.4, MCHC 32.7, RDW 15.0 H, RDW Differential 49.7 H, Plt Count 160, MPV 11.6, Immature Gran % (Auto) 0.600, Neut % (Auto) 87.7 H, Lymph % (Auto) 7.8 L, [place] % (Auto) 3.8, Eos % (Auto) 0.0, Baso % (Auto) 0.1, Absolute Neuts (auto) 12.6 H , Absolute Lymphs (auto) 1.12, Total Counted Not Reportable 05/19/18 07:00: Sodium 135 L, Potassium 4.0, Chloride 95 L, Carbon Dioxide 30.0 , Anion Gap 10, BUN 37 H, Creatinine 0.97, Estim Creat Clear Calc 62.46, Est GFR (MDRD) Af Amer 74, Est GFR (MDRD) Non-Af 61, BUN/Creatinine Ratio 38.2 H, Glucose 135 H, Calcium 8.6 Current Medications Acetaminophen (Tylenol) 650 mg PO Q6H PRN PRN PRN Reason: FEVER Last Admin: 05/18/18 05:02 Dose: 650 mg Acetaminophen/Codeine Phosphate (Tylenol#3) 1 tablet PO Q6H PRN PRN PRN Reason: PAIN Last Admin: 05/18/18 22:43 Dose: 1 tablet Albuterol Sulfate (Ventolin Aerosols) 2.5 mg INHALATION Q2H PRN PRN PRN Reason: WHEEZING Albuterol/Ipratropium (Duoneb) 3 ml INHALATION Q6HWA.RT [facility] Last Admin: 05/19/18 06:50 Dose: 3 ml Budesonide (Pulmicort Aerosol) 0.5 mg INHALATION Q12H.RT [facility] Last Admin: 05/19/18 06:50 Dose: 0.5 mg Cholecalciferol (Vitamin D) 2,000 unit PO DAILY [facility] Last Admin: 05/18/18 12:16 Dose: Not Given Enoxaparin Sodium (Lovenox) 40 mg SC DAILY@1000 [facility] Last Admin: 05/18/18 11:02 Dose: 40 mg Famotidine (Pepcid) 20 mg PO DAILY [facility] Last Admin: 05/18/18 12:18 Dose: Not Given Ceftriaxone Sodium (Rocephin) 1 gm in 50 mls @ 100 mls/hr IV Q12 [facility] Last Admin: 05/18/18 22:37 Dose: 100 mls/hr Sodium Chloride () 250 mls @ 15 mls/hr IV .[id number] PRN PRN Reason: SALINE FLUSH Magnesium Hydroxide (Milk Of Magnesia) 30 ml PO DAILY PRN PRN PRN Reason: Constipation Methylprednisolone (Solu-Medrol) 40 mg IV DAILY [facility] Last Admin: 05/18/18 13:29 Dose: 40 mg Morphine Sulfate () 1 mg IV Q4H PRN PRN PRN Reason: Shortness of Breath Last Admin: 05/18/18 19:53 Dose: 1 mg Nutritional Formula (Lactose Free) (Ensure Clear) 120 ml PO 4X/DAY [facility] Last Admin: 05/19/18 01:47 Dose: Not Given Sodium Chloride () 5 - 30 ml IV UD PRN PRN Reason: SALINE FLUSH Last Admin: 05/18/18 19:54 Dose: 10 ml Medical Necessity - Tobacco Use Smoking Status: Former smoker Tobacco Use: Non-smoker Assessment/Plan All Active Problems (Last Updated 05/16/18 @ 10:38 by Carolina Thompson) Dyspnea (Acute) Tendinitis (Acute) Shortness of breath (Acute) IPF (idiopathic pulmonary fibrosis) (Acute) Diarrhea (Acute) Cataracts, bilateral (Acute) History of pneumonia (Acute) 67-year-old female with a history of interstitial lung disease on home oxygen and hypertension presenting with a 3 day history of diarrhea and dehydration. 1. Acute on chronic respiratory failure due to interstitial lung disease * Therapy tachypneic and tachycardic was on BiPAP over the last 24 hours. * Attempts were made to put patient on oxygen by nasal cannula nonrebreather mask this morning but was unsuccessful as she desaturated 67%. Patient put right back on BiPAP. * Remains on breathing treatments. * Chest x-ray done 05/18/2018 showed mixed pulmonary interstitial fibrotic and pneumonic infiltrates with grade on the left side on the right and worsened since prior exam and moderate stable cardiomegaly. * pulmonology on board; patient and family to have conversation with vmware architect about the maintenance welder plan for pulmonary fibrosis and desire for intubation if needed. * to keep sPO2>88%, * 2. UTI * resolving. On IV ceftriaxone. Urine culture and blood culture negative * will dc IV ceftriaxone today * 5. Interstitial lung disease: * diagnosed 2016. Remains onBIPAP as mentioned above. Being worked up for transplant in [facility]. * remains very tachypneic, and is unable to wean to oxygen by nasal canula * now on IV solumedrol 40mg daily. * pulmo on board * 6. Hypovolemic hypotonic hyponatremia * Resolving. Na remains at 135. * Will continue monitoring. * 7. HTN: * controlled. BP meds held on she due to hypotension. * Blood pressures remained in the 110s and 120s systolic even whilst of blood pressure medications. * Will continue holding blood pressure medications and monitor. 8. DVT prophylaxis: heparin 9. GI prophylaxis: famotidine 10. Code status: full code. Family to have discussed with steel sampler today about desire for intubation and long-term plan. Code Visit Inpatient E&M: [id number] [facility] Hosp L3
[2018-05-19] MEDS: 0.9% NaCl Peripheral Flush Adult/Peds IV ×2 (09:44→20:15)
[2018-05-19] MEDS: Enoxaparin 40 MG/0.4 ML Syringe SC (09:44)
--- NOTE | 2018-05-19 10:06 | ECHOL_ITS ---
Reason For Study: PHTN Procedure This was a 2D Doppler, Color Flow transthoracic echocardiogram. The study was technically difficult. Exam performed portable in ICU/CCU. Left Ventricle Normal LV size. D shaped septum in systole and diastole. Left ventricular systolic function is normal. The estimated ejection fraction is 60 %. No regional wall motion abnormalities noted. Right Ventricle Moderately dilated right ventricle. Moderately severe global right ventricular systolic dysfunction. Atria Normal left atrium. Normal right atrium. Mitral Valve Normal mitral valve. Tricuspid Valve Normal tricuspid valve. Severe (4+) tricuspid valve insufficiency. Severe pulmonary hypertension. Pulmonary artery systolic pressure is 90 mmHg. Pulmonic Valve Normal pulmonic valve. Great Vessels Normal aortic root. The pulmonary artery is normal size. Pericardium/Pleural Small pericardial effusion. MMode/2D Measurements & Calculations LVIDd: 2.9 cm IVSd: 1.7 cm LA dimension: 2.5 cm LVIDs: 1.9 cm LVPWd: 0.99 cm RVDd: 4.7 cm FS: 34.6 % RA A4 area: 17.4 cm2 Doppler Measurements & Calculations PA V2 max: 86.1 cm/sec TR max tej: 463.1 cm/sec TR max P.8 mmHg Interpretation Summary Normal LV size. D shaped septum in systole and diastole. Left ventricular systolic function is normal. The estimated ejection fraction is 60 %. Severe pulmonary hypertension. Pulmonary artery systolic pressure is 90 mmHg. Compared to the previous there are significantly changes. Ordering Physician: Doroteo Neville Referring Physician: Rosalia Harrell Performed By: Reggie Go, CHRISTIN
--- NOTE | 2018-05-19 10:13 | PCM.PN.INT ---
Subjective: Patient did okay overnight. Patient was attempted off of BiPAP therapy on 15 L nasal cannula and nonrebreather, but promptly desaturated into the 60s. Patient has been tolerating BiPAP at 85% FiO2 overnight. No other complications were reported. Patient does report some respiratory muscle fatigue, but overall feels that she is grossly unchanged compared to previous. Patient continues to have a nonproductive cough intermittently. General: Alert, Oriented x3, Cooperative, No apparent distress, - - Good synchrony with BiPAP therapy HEENT: Atraumatic, PERRLA, EOMI, Normocephalic, - - No scleral icterus or injection noted. Oral: No Gingival or Mucosal Lesions/ Ulcerations, Dry Mucosa Neck: Supple, No Nodes, Trachea Midline, JVD, Right Lungs: No rhonchi, No wheeze, Diminished, Rales Cardiovascular: Normal S1, Normal S2, No murmurs, No rub noted, No Gallop, Tachycardic, - - Difficult to hear extra heart sounds given BiPAP therapy Abdomen: Bowel Sounds Present, Soft, Non Tender, Non-Distended, Obese Extremities: No cyanosis, Capillary Refill Less than 3 Seconds, Clubbing, Edema Skin: No rashes, No breakdown Musculoskeletal: No Tenderness to Palpation of Joints or Extremities Lymphatic: No Cervical, Supraclavicular, or Inguinal Adenopathy Neurological: Cranial nerves II-XII grossly intact, Neuro grossly intact, Motor Exam 5/5 strength throughout Psych/Mental Status: Alert and oriented to time, place, person, mood and affect Vital Signs Temp Pulse Resp BP Pulse Ox 35.9 C L 116 H 35 H 111/68 88 05/19/18 00:00 05/19/18 07:20 05/19/18 07:20 05/19/18 07:00 05/19/18 07:20 Oxygen Flow Rate (L/min) 15 Oxygen Delivery Method Bi-pap Weight: 70.3 kg Intake and Output for Last 24 Hours 05/17/18 05/18/18 05/19/18 23:59 23:59 23:59 Intake Total 615 / 615 446 / 446 50 / 50 Output Total 600 / 600 1215 / 1215 100 / 100 Balance -769 / -769 -50 / -50 Labs (Last 48 Hours) 05/18/18 05/18/18 05/19/18 05:00 05:00 07:00 WBC 13.4 H 14.3 H RBC 4.06 L 4.24 Hgb 12.4 12.9 Hct 38.2 39.5 MCV 94.1 93.2 MCH 30.5 30.4 MCHC 32.5 32.7 RDW 14.8 H 15.0 H RDW Differential 50.5 H 49.7 H Plt Count 144 L 160 MPV 10.8 11.6 Immature Gran % (Auto) 0.200 0.600 Neut % (Auto) 91.3 H 87.7 H Lymph % (Auto) 6.[address] [place] % (Auto) 1.7 3.8 Eos % (Auto) 0.3 0.0 Baso % (Auto) 0.1 0.1 Absolute Neuts (auto) 12.2 H 12.6 H Absolute Lymphs (auto) 0.86 1.12 Total Counted Not Reportable Not Reportable Sodium 136 Potassium 4.1 Chloride 95 L Carbon Dioxide 32.0 Anion Gap 9 BUN 17 Creatinine 0.57 Estim Creat Clear Calc 61.53 Est GFR (MDRD) Af Amer 135 Est GFR (MDRD) Non-Af 111 BUN/Creatinine Ratio 29.6 H Glucose 100 Calcium 8.2 L 05/19/18 07:00 WBC RBC Hgb Hct MCV MCH MCHC RDW RDW Differential Plt Count MPV Immature Gran % (Auto) Neut % (Auto) Lymph % (Auto) [place] % (Auto) Eos % (Auto) Baso % (Auto) Absolute Neuts (auto) Absolute Lymphs (auto) Total Counted Sodium 135 L Potassium 4.0 Chloride 95 L Carbon Dioxide 30.0 Anion Gap 10 BUN 37 H Creatinine 0.97 Estim Creat Clear Calc 62.46 Est GFR (MDRD) Af Amer 74 Est GFR (MDRD) Non-Af 61 BUN/Creatinine Ratio 38.2 H Glucose 135 H Calcium 8.6 Medical Necessity - Tobacco Use Smoking Status: Former smoker Tobacco Use: Non-smoker Assessment/Plan All Active Problems (Last Updated 05/16/18 @ 10:38 by Carolina Thompson) Dyspnea (Acute) Tendinitis (Acute) Shortness of breath (Acute) IPF (idiopathic pulmonary fibrosis) (Acute) Diarrhea (Acute) Cataracts, bilateral (Acute) History of pneumonia (Acute) RECOMMENDATIONS: 1. Hold IV Lasix today. 2. Transition patient to AVAPS. 3. Continue scheduled DuoNeb, budesonide and baseline prednisone dose. 4. Wean supplemental oxygen as tolerated. 5. Continue Lovenox for DVT prophylaxis 6. Awaiting recent records from the [facility], regarding the patient's recent evaluation and 6 minute walk test. 7. Obtain echocardiogram to evaluate pulmonary artery pressure IMPRESSIONS: 1. Acute on chronic hypoxemic respiratory failure Patient has been unable to come off of BiPAP therapy and is requiring 85% FiO2 to maintain appropriate saturations. Patient was recently seen at [facility] and there was discussion about possible lung transplantation. Patient did present with significant hypoxemia, but this appears to be worsening. Patient is on DuoNeb, budesonide and baseline prednisone therapy. Patient did receive a dose of IV Lasix yesterday, but significant elevation in creatinine today despite minimal diuresis. Still awaiting outpatient records from [facility]. Discussed with the patient's family and herself at the bedside about CODE STATUS. 2. Sepsis secondary to presumptive gastroenteritis versus cystitis Continue antibiotics while awaiting infectious workup. Some concern patient may be suffering from progression of IPF and not any pneumonia or other infectious process. 3. Baseline chronic obstructive pulmonary disease and progressive interstitial lung disease/suspected idiopathic pulmonary fibrosis Continue baseline bronchodilators and chronic prednisone therapy. The patient does have a history of progressive interstitial lung disease along with COPD. Recommend continued outpatient follow-up with the [facility] for lung transplantation evaluation. 4. Mild hypovolemic hyponatremia Resolving. Improved with intravascular volume expansion. TIME: 35 minutes of critical care time spent addressing patient's acute on chronic hypoxic respiratory failure, sepsis, discussions of CODE STATUS, review of all data and collaboration with care team (7 AM to 9:30 AM) This note was generated with [employer] dictation software. It may contain incorrect words, spelling, and punctuation that were not noted in checking the note before signing. Code Visit 9xxxx: [id number] Critical care first hour
--- NOTE | 2018-05-19 10:19 | PN_ITS ---
Subjective: Patient did okay overnight. Patient was attempted off of BiPAP therapy on 15 L nasal cannula and nonrebreather, but promptly desaturated into the 60s. Patient has been tolerating BiPAP at 85% FiO2 overnight. No other complications were reported. Patient does report some respiratory muscle fatigue, but overall feels that she is grossly unchanged compared to previous. Patient continues to have a nonproductive cough intermittently. General: Alert, Oriented x3, Cooperative, No apparent distress, - - Good synchrony with BiPAP therapy HEENT: Atraumatic, PERRLA, EOMI, Normocephalic, - - No scleral icterus or injection noted. Oral: No Gingival or Mucosal Lesions/ Ulcerations, Dry Mucosa Neck: Supple, No Nodes, Trachea Midline, JVD, Right Lungs: No rhonchi, No wheeze, Diminished, Rales Cardiovascular: Normal S1, Normal S2, No murmurs, No rub noted, No Gallop, Tachycardic, - - Difficult to hear extra heart sounds given BiPAP therapy Abdomen: Bowel Sounds Present, Soft, Non Tender, Non-Distended, Obese Extremities: No cyanosis, Capillary Refill Less than 3 Seconds, Clubbing, Edema Skin: No rashes, No breakdown Musculoskeletal: No Tenderness to Palpation of Joints or Extremities Lymphatic: No Cervical, Supraclavicular, or Inguinal Adenopathy Neurological: Cranial nerves II-XII grossly intact, Neuro grossly intact, Motor Exam 5/5 strength throughout Psych/Mental Status: Alert and oriented to time, place, person, mood and affect Vital Signs Temp Pulse Resp BP Pulse Ox 35.9 C L 116 H 35 H 111/68 88 05/19/18 00:00 05/19/18 07:20 05/19/18 07:20 05/19/18 07:00 05/19/18 07:20 Oxygen Flow Rate (L/min) 15 Oxygen Delivery Method Bi-pap Weight: 70.3 kg Intake and Output for Last 24 Hours 05/17/18 05/18/18 05/19/18 23:59 23:59 23:59 Intake Total 615 / 615 446 / 446 50 / 50 Output Total 600 / 600 1215 / 1215 100 / 100 Balance -769 / -769 -50 / -50 Labs (Last 48 Hours) 05/18/18 05/18/18 05/19/18 05:00 05:00 07:00 WBC 13.4 H 14.3 H RBC 4.06 L 4.24 Hgb 12.4 12.9 Hct 38.2 39.5 MCV 94.1 93.2 MCH 30.5 30.4 MCHC 32.5 32.7 RDW 14.8 H 15.0 H RDW Differential 50.5 H 49.7 H Plt Count 144 L 160 MPV 10.8 11.6 Immature Gran % (Auto) 0.200 0.600 Neut % (Auto) 91.3 H 87.7 H Lymph % (Auto) 6.4 L 7.8 L [place] % (Auto) 1.7 3.8 Eos % (Auto) 0.3 0.0 Baso % (Auto) 0.1 0.1 Absolute Neuts (auto) 12.2 H 12.6 H Absolute Lymphs (auto) 0.86 1.12 Total Counted Not Reportable Not Reportable Sodium 136 Potassium 4.1 Chloride 95 L Carbon Dioxide 32.0 Anion Gap 9 BUN 17 Creatinine 0.57 Estim Creat Clear Calc 61.53 Est GFR (MDRD) Af Amer 135 Est GFR (MDRD) Non-Af 111 BUN/Creatinine Ratio 29.6 H Glucose 100 Calcium 8.2 L 05/19/18 07:00 WBC RBC Hgb Hct MCV MCH MCHC RDW RDW Differential Plt Count MPV Immature Gran % (Auto) Neut % (Auto) Lymph % (Auto) [place] % (Auto) Eos % (Auto) Baso % (Auto) Absolute Neuts (auto) Absolute Lymphs (auto) Total Counted Sodium 135 L Potassium 4.0 Chloride 95 L Carbon Dioxide 30.0 Anion Gap 10 BUN 37 H Creatinine 0.97 Estim Creat Clear Calc 62.46 Est GFR (MDRD) Af Amer 74 Est GFR (MDRD) Non-Af 61 BUN/Creatinine Ratio 38.2 H Glucose 135 H Calcium 8.6 Medical Necessity - Tobacco Use Smoking Status: Former smoker Tobacco Use: Non-smoker Assessment/Plan All Active Problems (Last Updated 05/16/18 @ 10:38 by Carolina Thompson) Dyspnea (Acute) Tendinitis (Acute) Shortness of breath (Acute) IPF (idiopathic pulmonary fibrosis) (Acute) Diarrhea (Acute) Cataracts, bilateral (Acute) History of pneumonia (Acute) RECOMMENDATIONS: 1. Hold IV Lasix today. 2. Transition patient to AVAPS. 3. Continue scheduled DuoNeb, budesonide and baseline prednisone dose. 4. Wean supplemental oxygen as tolerated. 5. Continue Lovenox for DVT prophylaxis 6. Awaiting recent records from the [facility], regarding the patient' s recent evaluation and 6 minute walk test. 7. Obtain echocardiogram to evaluate pulmonary artery pressure IMPRESSIONS: 1. Acute on chronic hypoxemic respiratory failure Patient has been unable to come off of BiPAP therapy and is requiring 85% FiO2 to maintain appropriate saturations. Patient was recently seen at [facility] and there was discussion about possible lung transplantation. Patient did present with significant hypoxemia, but this appears to be worsening. Patient is on DuoNeb, budesonide and baseline prednisone therapy. Patient did receive a dose of IV Lasix yesterday, but significant elevation in creatinine today despite minimal diuresis. Still awaiting outpatient records from [facility]. Discussed with the patient's family and herself at the bedside about CODE STATUS. 2. Sepsis secondary to presumptive gastroenteritis versus cystitis Continue antibiotics while awaiting infectious workup. Some concern patient may be suffering from progression of IPF and not any pneumonia or other infectious process. 3. Baseline chronic obstructive pulmonary disease and progressive interstitial lung disease/suspected idiopathic pulmonary fibrosis Continue baseline bronchodilators and chronic prednisone therapy. The patient does have a history of progressive interstitial lung disease along with COPD. Recommend continued outpatient follow-up with the [facility] for lung transplantation evaluation. 4. Mild hypovolemic hyponatremia Resolving. Improved with intravascular volume expansion. TIME: 35 minutes of critical care time spent addressing patient's acute on chronic hypoxic respiratory failure, sepsis, discussions of CODE STATUS, review of all data and collaboration with care team (7 AM to 9:30 AM) This note was generated with [employer] dictation software. It may contain incorrect words, spelling, and punctuation that were not noted in checking the note before signing. Code Visit 9xxxx: [id number] Critical care first hour
--- NOTE | 2018-05-19 18:00 | NURSING ---
PATIENT REQUESTS A SIP OF WATER, THIS NURSE EXPLAINED TO THE PATIENT WHY SHE CAN NOT BE TAKEN OFF OF BIPAP AT THIS TIME FOR A SIP OF WATER. THIS NURSE EXPLAINED TO PATIENT RR IS 44, HR 135 AND HER RECOVERY TIME OF OXYGEN SATURATION IS TAKING LONGER WITH EACH REMOVAL OF BIPAP. THIS NURSE ALSO EXPLAINED TO PATIENT SHE IS AT HIGH RISK OF ASPIRATION PNEUMONIA WITH DRINKING FLUIDS WHILE DEPENDENT ON BIPAP. THE PATIENT TOLD THIS NURSE SHE WANTS TO GO HOME AND SHE IS TIRED OF THE BIPAP. PATIENT REQUESTED TO SPEAK TO A PHYSICIAN ABOUT CODE STATUS AND HER CHOICES. DR. FERREIRA AND DR. SANCHEZ NOTIFIED.
--- NOTE | 2018-05-19 19:00 | PCM.HOSP.N ---
Hospitalist Note I talked with the patient this afternoon as well as the patient's family members who were in her room, I was requested to talk with her about her treatment options by Dr. Su, I explained to her that her option was to change her CODE STATUS and go off the BiPAP, go on the ventilator with no guarantee that she could ever come off the ventilator if she chose this option, or consider going to the hospice care facility for end of life care. After discussions with her family members, patient has decided that she would like to go to the hospice care center, I called the hospice care nurse and discussed the case with her and they will come over tonight to talk with the patient and the patient's family.
[2018-05-19] MEDS: Morphine 2 MG/ML Syringe 1 MG IV (20:15)
[2018-05-19] MEDS: Morphine 2 MG/ML Syringe IV (21:44)
--- NOTE | 2018-05-19 22:00 | NURSING ---
[facility] here to transport patient to inpatient hospice.
--- NOTE | 2018-05-19 22:31 | NURSING ---
Pt leaving now with [facility], transporting to hospice.
--- NOTE | 2018-05-20 07:06 | PCM.DC.SUM ---
Discharge Date and Diagnosis Date of Admission: 05/16/18 Date of Discharge: 05/19/18 - Primary Discharge Diagnosis Chronic hypoxic respiratory failure Gastroenteritis - Secondary Discharge Diagnosis Chronic Problems (Last Updated 05/16/18 @ 10:38 by Carolina Thompson) PORRAS (dyspnea on exertion) (Chronic) Chronic hypoxemic respiratory failure (Chronic) 4 L pulse dose at rest, 6 L pulse dose on ambulation Bronchiectasis (Chronic) Stage 2 moderate COPD by GOLD classification (Chronic) FEV1 56% of predicted Restrictive lung disease (Chronic) GERD (gastroesophageal reflux disease) (Chronic) Arthritis (Chronic) Hypoxia (Chronic) Chronic bronchitis (Chronic) Hyperlipemia (Chronic) Hypertension (Chronic) Hospital Course and Treatment Imaging Results: Diagnostic Data Chest X-Ray 05/18/18 06:45 IMPRESSION: 1. Mixed pulmonary interstitial fibrotic and pneumonic infiltrates, left side greater than the right again demonstrated, worsened since the prior exam. 2. Stable mild/moderate cardiomegaly. Electronically Signed: Rica Lopez MD at 7:27 EDT Tel , Service support , Laboratory Tests 05/16/18 05/16/18 05/16/18 06:30 06:30 08:10 WBC 16.2 H RBC 5.04 Hgb 15.7 H Hct 46.1 MCV 91.5 MCH 31.2 MCHC 34.1 RDW 14.2 RDW Differential 46.6 H Plt Count 154 MPV 11.6 Immature Gran % (Auto) 0.400 Neut % (Auto) 91.9 H Lymph % (Auto) 4.6 L [place] % (Auto) 2.7 Eos % (Auto) 0.2 Baso % (Auto) 0.2 Absolute Neuts (auto) 14.9 H Absolute Lymphs (auto) 0.75 L Total Counted Not Reportable Specimen Type Sample Site pH Bicarbonate Actual POC Total CO2 Base Excess O2 Saturation O2 % ABG pCO2 ABG pO2 Domenico Test Respiration Rate O2 Delivery Device EPAP IPAP Blood Gas Notified Whom Blood Gas Notified Time Sodium 130 L Potassium 3.6 Chloride 90 L Carbon Dioxide 27.0 Anion Gap 13 BUN 24 H Creatinine 0.93 Estim Creat Clear Calc 64.22 Est GFR (MDRD) Af Amer 77 Est GFR (MDRD) Non-Af 64 BUN/Creatinine Ratio 25.9 H Glucose 151 H Lactic Acid 1.9 Calcium 9.1 Urine Color Urine Clarity Urine pH Ur Specific [place] Urine Protein Urine Glucose (UA) Urine Ketones Urine Occult Blood Urine Nitrite Urine Bilirubin Urine Urobilinogen Ur Leukocyte Esterase Urine RBC Urine WBC Ur Squamous Epith Cells Urine Bacteria Urine Mucus MRSA (PCR) 05/16/18 05/16/18 05/17/18 08:36 10:40 01:26 WBC RBC Hgb Hct MCV MCH MCHC RDW RDW Differential Plt Count MPV Immature Gran % (Auto) Neut % (Auto) Lymph % (Auto) [place] % (Auto) Eos % (Auto) Baso % (Auto) Absolute Neuts (auto) Absolute Lymphs (auto) Total Counted Specimen Type ART Sample Site L Radial pH 7.47 H Bicarbonate Actual 28.4 H POC Total CO2 30 Base Excess 5 H O2 Saturation 100 H O2 % 90 ABG pCO2 39.2 ABG pO2 199 H Domenico Test POS Respiration Rate 12 O2 Delivery Device Bi / C PAP EPAP 10 IPAP 18 Blood Gas Notified Whom HOSP Blood Gas Notified Time 122 Sodium Potassium Chloride Carbon Dioxide Anion Gap BUN Creatinine Estim Creat Clear Calc Est GFR (MDRD) Af Amer Est GFR (MDRD) Non-Af BUN/Creatinine Ratio Glucose Lactic Acid Calcium Urine Color Esther Urine Clarity Sl. Cloudy Urine pH 5.0 Ur Specific [place] 1.020 Urine Protein 100 H Urine Glucose (UA) Normal Urine Ketones 5 H Urine Occult Blood 10 H Urine Nitrite Positive H Urine Bilirubin 3 H Urine Urobilinogen 4 H Ur Leukocyte Esterase 100 H Urine RBC 0-5 SEEN Urine WBC 0-5 SEEN Ur Squamous Epith Cells 5-10 SEEN Urine Bacteria 1+ Urine Mucus 2+ MRSA (PCR) Negative 05/17/18 05/17/18 05/18/18 05:20 05:20 05:00 WBC 10.6 13.4 H RBC 3.88 L 4.06 L Hgb 11.9 L 12.4 Hct 36.6 L 38.2 MCV 94.3 94.1 MCH 30.7 30.5 MCHC 32.5 32.5 RDW 14.7 H 14.8 H RDW Differential 50.0 H 50.5 H Plt Count 136 L 144 L MPV 11.3 10.8 Immature Gran % (Auto) 0.200 0.200 Neut % (Auto) 92.1 H 91.3 H Lymph % (Auto) 5.8 L 6.4 L [place] % (Auto) 1.4 1.7 Eos % (Auto) 0.4 0.3 Baso % (Auto) 0.1 0.1 Absolute Neuts (auto) 9.8 H 12.2 H Absolute Lymphs (auto) 0.61 L 0.86 Total Counted Not Reportable Not Reportable Specimen Type Sample Site pH Bicarbonate Actual POC Total CO2 Base Excess O2 Saturation O2 % ABG pCO2 ABG pO2 Domenico Test Respiration Rate O2 Delivery Device EPAP IPAP Blood Gas Notified Whom Blood Gas Notified Time Sodium 135 L Potassium 3.5 Chloride 98 Carbon Dioxide 29.0 Anion Gap 8 BUN 15 Creatinine 0.53 L Estim Creat Clear Calc 61.96 Est GFR (MDRD) Af Amer 148 Est GFR (MDRD) Non-Af 122 BUN/Creatinine Ratio 28.4 H Glucose 96 Lactic Acid Calcium 7.4 L Urine Color Urine Clarity Urine pH Ur Specific [place] Urine Protein Urine Glucose (UA) Urine Ketones Urine Occult Blood Urine Nitrite Urine Bilirubin Urine Urobilinogen Ur Leukocyte Esterase Urine RBC Urine WBC Ur Squamous Epith Cells Urine Bacteria Urine Mucus MRSA (PCR) 05/18/18 05/19/18 05/19/18 05:00 07:00 07:00 WBC 14.3 H RBC 4.24 Hgb 12.9 Hct 39.5 MCV 93.2 MCH 30.4 MCHC 32.7 RDW 15.0 H RDW Differential 49.7 H Plt Count 160 MPV 11.6 Immature Gran % (Auto) 0.600 Neut % (Auto) 87.7 H Lymph % (Auto) 7.8 L [place] % (Auto) 3.8 Eos % (Auto) 0.0 Baso % (Auto) 0.1 Absolute Neuts (auto) 12.6 H Absolute Lymphs (auto) 1.12 Total Counted Not Reportable Specimen Type Sample Site pH Bicarbonate Actual POC Total CO2 Base Excess O2 Saturation O2 % ABG pCO2 ABG pO2 Domenico Test Respiration Rate O2 Delivery Device EPAP IPAP Blood Gas Notified Whom Blood Gas Notified Time Sodium 136 135 L Potassium 4.1 4.0 Chloride 95 L 95 L Carbon Dioxide 32.0 30.0 Anion Gap 9 10 BUN 17 37 H Creatinine 0.57 0.97 Estim Creat Clear Calc 61.53 62.46 Est GFR (MDRD) Af Amer 135 74 Est GFR (MDRD) Non-Af 111 61 BUN/Creatinine Ratio 29.6 H 38.2 H Glucose 100 135 H Lactic Acid Calcium 8.2 L 8.6 Urine Color Urine Clarity Urine pH Ur Specific [place] Urine Protein Urine Glucose (UA) Urine Ketones Urine Occult Blood Urine Nitrite Urine Bilirubin Urine Urobilinogen Ur Leukocyte Esterase Urine RBC Urine WBC Ur Squamous Epith Cells Urine Bacteria Urine Mucus MRSA (PCR) Operations: None Procedures: None Summary of Care Provided: The patient is a 67 year old F with a past medical history of interstitial lung disease on home oxygen 4-6 L and hypertension. She was admitted via the ED on 05/16/2018 with a complaint fourth diarrhea for 3 days prior to presentation. She had associated frequency of urination. Patient says she was on 4 L of oxygen at home usually which increased to 6 L with exertion. She was being followed up at [facility] and be worked up for possible lung transplant. She was admitted and managed for diarrhea and hypertension as well as UTI. She was initially saturating at 89% on 10 L of oxygen in the ED. She is therefore also managed for acute on chronic hypoxic respiratory failure. On admission, patient met SIRS criteria 3 out of 4 and was managed for sepsis due to UTI and gastroenteritis. Diarrhea subsequently resolved. She was started on IV ceftriaxone for UTI which is subsequently stopped after cultures came back negative. Patient however decompensated respiratory hernandez and required increasing amounts of oxygen by nasal cannula. She was therefore switched to BiPAP. Patient tolerated BiPAP well but could not be weaned off BiPAP and could not even tolerate coming off BiPAP for 1 hour during the day. She was saturating in the 60s when she was taken off BiPAP and placed on 15 L nasal cannula and even oxygen nonrebreather facemask. Echocardiogram done (05/19/18) showed normal left ventricular size with D-shaped septum in systole and diastole as well as normal left ventricular systolic function. EF was 60%. Pulmonary artery systolic pressure was 90 mmHg indicating severe pulmonary hypertension. Patient remained severely short of breath and despite her wish to come off the BiPAP she could not tolerate it. Patient and family were counseled extensively about her prognosis and possibility of changing CODE STATUS. Patient was informed that if she was intubated, there is a very slim likelihood she would be able to come off the ventilator may need to go for tracheostomy. Initially patient stated that she wanted to remain full code and wanted to be intubated but only if she absolutely needed it. On 05/19/2018 patient requested to talk to physicians about her options of care as she was tired about not being able to come off the BiPAP. Again, the severity of her prognosis was explained to patient and patient stated that she was tired of all this and did not want to continue going through this. Her CODE STATUS was therefore changed to DNR CC at her wish and patient opted for inpatient hospice care. She was discharged on 05/19/2018 2 on inpatient hospice care facility. [] Discharge Diet: 2000 mg Sodium Diet Home Medications: Medications to take at Discharge hydrochlorothiazide 25 mg tablet 25 mg PO DAILY #90 tab 11/18/17 losartan 50 mg tablet 50 mg PO DAILY #90 tab 11/18/17 acetaminophen 300 mg-codeine 30 mg tablet 1 tab PO Q8H PRN PRN tab 11/29/17 budesonide 0.25 mg/2 mL suspension for nebulization 0.25 mg INHALATION Q12H 11/29/17 formoterol fumarate 20 mcg/2 mL solution for nebulization 2 ml INHALATION Q12H 11/29/17 mucus clearing device See Dose Instructions .ROUTE .MEDSUPPLY #1 ea 11/29/17 cholecalciferol (vitamin D3) 2,000 unit capsule 2,000 unit PO DAILY cap 12/17/17 morphine 20 mg/5 mL (4 mg/mL) oral solution 2.5 mg PO Q4H PRN PRN ml 04/02/18 Dapsone 50 mg PO BID 05/16/18 Prednisone 40 mg PO DAILY 05/16/18 Simvastatin [Zocor] PO DAILY 05/16/18 Primary Care Physician: Rosalia Harrell MD [Primary Care Provider] - Please follow up with your Primary Care Physician in: one week Disposition: Hospice Medical Facility Minutes spent on discharge:: 40 Patient Condition:: Critical Medical Necessity - Tobacco Use Smoking Status: Former smoker Tobacco Use: Non-smoker Meaningful Use Info Meaningful Use Diagnoses (Choose all that apply): None applicable Code Visit Inpatient E&M: 25594 Disch Hosp
== END 2018-05-19 22:33 | disposition hospice, inpatient (51) | DRG 871 ==
LOC: ED 07:09 → ICU 10:18
PROVIDERS: Internal Medicine Critical Care Medicine; Admitting Provider Student in an Organized Health Care Education/Training Program; Emergency Provider Emergency Medicine; Family Provider Internal Medicine; PCP Internal Medicine; Visit Provider Student in an Organized Health Care Education/Training Program
DX: A41.9 Sepsis, unspecified organism (principal); J96.21 Acute and chronic respiratory failure with hypoxia; E87.1 Hypo-osmolality and hyponatremia; N39.0 Urinary tract infection, site not specified; J84.9 Interstitial pulmonary disease, unspecified; Z99.81 Dependence on supplemental oxygen; I27.20 Pulmonary hypertension, unspecified; K21.9 Gastro-esophageal reflux disease without esophagitis; E78.5 Hyperlipidemia, unspecified; I10 Essential (primary) hypertension; K52.9 Noninfective gastroenteritis and colitis, unspecified; Z66 Do not resuscitate; Z51.5 Encounter for palliative care; Z87.891 Personal history of nicotine dependence; J47.9 Bronchiectasis, uncomplicated; M19.90 Unspecified osteoarthritis, unspecified site; E86.0 Dehydration
CPT/HCPCS: 36600; 71045; 80048; 81001; 82803; 83605; 85025; 87040; 87086; 87641; 93005; 93308; 94002; 94003; 94640; 97802; 99285; J7030; J7040; P9612; A4216; J1940; J2405